=== PATIENT | male | born 1960 | race Two or more races ===

== ENCOUNTER 2021-05-24 11:33 | Outpatient (REF) | payer MEDICAID, SELFPAY ==
[2021-05-24 13:46] LABS: MANUAL DIFF FLAG NO
[2021-05-24 13:54] LABS: Basophils Absolute Auto 0.1 X10*3/uL (0.0-0.2); Basophils Percent Auto 0.5 % (0-2); Eosinophils Absolute Auto 0.1 X10*3/uL (0.0-0.4); Hematocrit 38.2 % (42.0-52.0); Hemoglobin 12.7 g/dl (14.0-18.0); Imm Gran Abs Auto 0.08 X10*3/uL (0.00-0.03); Imm Gran Pct Auto 0.7 % (0.0-0.4); Lymphocytes Absolute Auto 3.2 X10*3/uL (1.2-4.9); Lymphocytes Percent Auto 28.4 % (20-40); Mean Corpuscular HGB Conc 33.2 g/dl (31.0-36.0); Mean Corpuscular Hemoglobin 30.2 pg (27.0-33.0); Mean Corpuscular Volume 90.7 fL (80.0-98.0); Mean Platelet Volume 8.8 fL (9.4-12.4); Monocytes Absolute Auto 0.7 X10*3/uL (0.1-1.2); Monocytes Percent Auto 6.6 % (2-11); Neutrophils Percent Auto 62.8 % (45-73); Platelet Count 409 X10*3/uL (160-400); Red Blood Count 4.21 X10*6/uL (4.60-5.80); Red Cell Distribution Width 13.2 % (11.0-16.0); White Blood Count 11.1 X10*3/uL (4.8-10.8)
[2021-05-24 14:15] LABS: Alanine Aminotransferase 12 U/L (0-40); Albumin Level 4.3 g/dL (3.5-5.0); Alkaline Phosphatase 91 U/L (39-117); Anion Gap 15 (12-20); Aspartate Amino Transferase 23 U/L (5-37); Bilirubin Total 0.5 mg/dL (0.0-1.0); Blood Urea Nitrogen 11 mg/dL (9-16); Calcium 9.5 mg/dL (8.4-10.2); Carbon Dioxide 26 mmol/L (22-29); Chloride 101 mmol/L (96-108); Cholesterol 224 mg/dL; Estimated Glomerular Filt Rate > 60; Glucose Fasting 111 mg/dL (60-99); HDL Cholesterol 59 mg/dL; LDL Cholesterol Calculated 144 mg/dl; Potassium 4.3 mmol/L (3.3-5.1); Sodium 138 mmol/L (135-145); Total Protein 7.3 g/dL (6.5-8.0); Triglycerides 105 mg/dL
== END 2021-05-24 11:34 | disposition home or self-care (01) ==
LOC: HO.10HDL 11:33
PROVIDERS: Internal Medicine; Visit Provider Internal Medicine
DX: Z00.00 Encounter for general adult medical examination without abnormal findings (principal); F10.10 Alcohol abuse, uncomplicated; I10 Essential (primary) hypertension; I73.9 Peripheral vascular disease, unspecified; S43.422S Sprain of left rotator cuff capsule, sequela; Z72.0 Tobacco use
CPT/HCPCS: 36415; 80053; 80061; 85025

== ENCOUNTER → 2021-08-03 14:49 | Outpatient (BNVA) | payer MEDICAID, SELFPAY | PROVIDERS: PCP Internal Medicine; Visit Provider Surgery Vascular Surgery | DX: I73.9 Peripheral vascular disease, unspecified (principal) | CPT/HCPCS: 99202 ==

== ENCOUNTER 2021-09-23 11:46 | Outpatient (REF) | payer MEDICAID, SELFPAY ==
--- NOTE | ~2021-09-23 | US_ITS ---
EXAMINATION: COLOR-FLOW DUPLEX IMAGING OF THE BILATERAL LOWER EXTREMITY ARTERIAL SYSTEM. VELOCITY MEASUREMENTS THROUGHOUT THE FEMORAL ARTERIES WITH ANKLE-BRACHIAL PERIPHERAL ARTERIAL TESTING. CLINICAL INFORMATION: This is a 61-year-old male with claudication. Peripheral arterial disease. Hypertension, smoking, hyperlipidemia. RIGHT FEMORAL RUNOFF VELOCITIES: The right common femoral artery measures 39 cm/s and monophasic. The right profunda femoral artery is 21 cm/s and is monophasic. Right proximal superficial femoral artery measures 28 cm/s and monophasic. Mid superficial femoral artery is 44 cm/s and monophasic. Distal right superficial femoral artery measures 28 cm/s and is monophasic. Right popliteal velocity measures 23 cm/s and is monophasic. The posterior tibial artery velocity measures 17 cm/s and was monophasic. The right ankle-brachial index is 0.55. The waveforms are significantly depressed. LEFT FEMORAL RUNOFF VELOCITIES: The left common femoral artery measures 139 cm/s and triphasic. The left profunda femoral artery is 149 cm/s and is biphasic. Left proximal superficial femoral artery measures 44 cm/s and biphasic. Mid superficial femoral artery is 98 cm/s and triphasic. Distal left superficial femoral artery measures 101 cm/s and is triphasic. Left popliteal velocity measures 80 cm/s and is triphasic. The posterior tibial artery velocity measures 106 cm/s and was triphasic. The left ankle brachial index is 1.36. US/US arterial duplex LE BI IMPRESSION: 1. There are low velocities throughout the entire right lower extremity with monophasic waveforms and a severely diseased right ankle-brachial index. This suggests a hemodynamically significant stenosis is present. It is likely in the inflow in the right aortoiliac segment. 2. Normal left lower extremity peripheral arterial testing without hemodynamically significant stenosis.
== END 2021-09-23 11:47 | disposition home or self-care (01) ==
LOC: HO.US 11:46
PROVIDERS: PCP Internal Medicine; Visit Provider Surgery Vascular Surgery
DX: I73.9 Peripheral vascular disease, unspecified (principal)
CPT/HCPCS: 93925

== ENCOUNTER → 2021-10-07 10:49 | Outpatient (BNVA) | payer MEDICAID, SELFPAY | PROVIDERS: PCP Internal Medicine; Visit Provider Surgery Vascular Surgery | DX: I73.9 Peripheral vascular disease, unspecified (principal) | CPT/HCPCS: 99212 ==

== ENCOUNTER 2021-10-13 07:17 | Day surgery (SDC) | payer MEDICAID, SELFPAY ==
[2021-10-13] VITALS (11 sets, daily range): BP systolic 126–176; BP diastolic 69–96; PULSE 86–125; RESP 18–20; TEMP 36.1–37.7; O2SAT 97–99; BMI 27.0
[2021-10-13 08:24] LABS: MANUAL DIFF FLAG NO
[2021-10-13 08:29] LABS: Basophils Absolute Auto 0.1 X10*3/uL (0.0-0.2); Basophils Percent Auto 0.9 % (0-2); Eosinophils Absolute Auto 0.4 X10*3/uL (0.0-0.4); Eosinophils Percent Auto 4.5 % (0-4); Hematocrit 35.9 % (42.0-52.0); Hemoglobin 12.3 g/dl (14.0-18.0); Imm Gran Abs Auto 0.03 X10*3/uL (0.00-0.03); Imm Gran Pct Auto 0.4 % (0.0-0.4); Lymphocytes Absolute Auto 2.7 X10*3/uL (1.2-4.9); Mean Corpuscular HGB Conc 34.3 g/dl (31.0-36.0); Mean Corpuscular Hemoglobin 30.8 pg (27.0-33.0); Mean Corpuscular Volume 89.8 fL (80.0-98.0); Mean Platelet Volume 8.4 fL (9.4-12.4); Monocytes Absolute Auto 0.7 X10*3/uL (0.1-1.2); Neutrophils Absolute Auto 4.6 x10*3/uL (2.0-8.3); Neutrophils Percent Auto 54.2 % (45-73); Platelet Count 254 X10*3/uL (160-400); Red Cell Distribution Width 12.7 % (11.0-16.0); White Blood Count 8.5 X10*3/uL (4.8-10.8)
[2021-10-13 08:46] LABS: Blood Urea Nitrogen 8 mg/dL (9-16); Estimated Glomerular Filt Rate > 60
--- NOTE | 2021-10-13 11:27 | W.PM.OPN ---
Operative Note Operative Note Date of Service: 10/13/21 Narrative: Angiogram report from [facility] Preoperative diagnosis: Atherosclerosis of right lower extremity with activity limiting claudication Postoperative diagnosis: Same Procedure: 1. Ultrasound-guided left common femoral access 2. Aortogram with right lower extremity runoff Surgeon:Kiet Carter M.D., FACS, RPVI Biomass Production Manager:None Anesthesia: Local with moderate conscious sedation. Total intraservice moderate sedation time was 28 minutes. I monitored the patient's level of consciousness and physiologic status continuously throughout the procedure. Specimens:none Drains:none Estimated blood loss: Less than 10 ml Implant: None Indications: 61-year-old gentleman with history activity limiting claudication had noninvasive testing. He now presents for endovascular intervention The patient has signed the informed consent after reviewing risks, complications, benefits, and alternatives previously discussed with the patient. The patient was given the opportunity to ask any additional questions or voice any concerns. All questions were answered to the patient's satisfaction. Procedure in detail: Patient was brought to the angiography suite prior to which a time-out was called for patient identification and site verification. Bilateral groins were prepped and draped in the standard surgical fashion. Under ultrasound guidance left common femoral was punctured with micro puncture needle and wire. Subsequently a precision 5 Slovenian sheath was then placed. [employer] wire was advanced to the level of the aorta. 5 Slovenian Flush catheter was brought up and parked at the level of the renal arteries. Aortogram was then undertaken. Catheter was brought down to the level of the iliac bifurcation. Iliacs were subsequently imaged. Catheter was then brought in up and over to the right common femoral artery. Runoff study was then undertaken. No active intervention indicated. Catheter wire sheath was removed. 10 minutes of direct pressure was held. Patient tolerated the procedure well. Returned to recovery with stable vitals. Interpretation of films: 1. Ultrasound demonstrates appropriate femoral puncture. Image of which was saved. 2. Aortogram demonstrates appropriate caliber aorta. Minimal disease. Appropriate take-off of the renals. 3. Iliac images demonstrate no significant disease which was unexpected 4. Right Leg Common femoral artery: Near occlusive disease at the common femoral Profundus Femoris: Disease at origin Superficial femoral artery: Disease at origin and rest was patent Popliteal artery (p1,p2,p3): No significant disease Anterior tibial artery: No significant disease Peroneal artery: No significant disease Posterior tibial artery: No significant disease Dorsalis pedis/plantar arch: Complete Conclusion: 1. Successful diagnostic angiogram. The patient will require right femoral endarterectomy. 2. Anticoagulation status: No change This note is constructed using voice recognition software. While every effort has been made to ensure accuracy, optomechanical engineer errors may have been included. Thank you for allowing me to participate in the care of your patient. Yours sincerely, Kiet Carter MD, FACS, R.P.V.I.
== END 2021-10-13 14:28 | disposition home or self-care (01) ==
PROVIDERS: PCP Internal Medicine; Visit Provider Surgery Vascular Surgery
DX: I70.211 Atherosclerosis of native arteries of extremities with intermittent claudication, right leg (principal); I10 Essential (primary) hypertension; R25.2 Cramp and spasm; R26.2 Difficulty in walking, not elsewhere classified; Z79.899 Other long term (current) drug therapy; F10.10 Alcohol abuse, uncomplicated; F12.90 Cannabis use, unspecified, uncomplicated; F14.90 Cocaine use, unspecified, uncomplicated; F17.210 Nicotine dependence, cigarettes, uncomplicated; Z98.890 Other specified postprocedural states
CPT/HCPCS: 36246; 36415; 75630; 76937; 82565; 84520; 85025; 99152; 99153; C1769; C1887; J2250; J3010; Q9967

== ENCOUNTER → 2021-10-21 14:22 | Outpatient (BNVA) | payer MEDICAID, SELFPAY | PROVIDERS: PCP Internal Medicine; Visit Provider Surgery Vascular Surgery | DX: I73.9 Peripheral vascular disease, unspecified (principal) | CPT/HCPCS: 99212 ==

== ENCOUNTER → 2021-10-26 12:39 | Outpatient (BNVA) | payer MEDICAID, SELFPAY | PROVIDERS: PCP Internal Medicine; Visit Provider Internal Medicine Cardiovascular Disease | DX: Z01.810 Encounter for preprocedural cardiovascular examination (principal); I73.9 Peripheral vascular disease, unspecified | CPT/HCPCS: 93005; 99202 ==

== ENCOUNTER → 2021-11-04 07:53 | Outpatient (REF) | payer MEDICAID, SELFPAY ==
--- NOTE | ~2021-11-04 | NM_ITS ---
Lexiscan Myocardial perfusion study Indication: Preoperative cardiovascular evaluation Technique: The patient was brought in for a Lexiscan perfusion study on 11/04/2021 and was injected 0.4 mg of Lexiscan intravenously. Within a minute of this injection 30 mCi of sestamibi was given intravenously. Images were obtained using the SPECT gamma camera interlaced with the gating device. Images were obtained in supine position. Resting perfusion study was performed on 11/05/2021. Patient was administered 30 mCi of sestamibi intravenously at rest. Images were then obtained in supine position. Total DLP 84mGy-cm. Images were processed with the software and compared side to side in short axis, horizontal long axis and vertical long axis views. Findings: Raw acquisition was reviewed. The stress perfusion study showed diminished tracer uptake along the inferior wall from basal to mid portions. With CT attenuation correction, there is significant improvement suggestive of diaphragmatic attenuation artifact. The gated study shows normal LV systolic function with calculated LVEF of 68%. LV cavity is normal in size. The gated study shows normal wall thickening and contraction of segments. Resting study shows diminished tracer uptake along the inferior wall. With CT attenuation correction, there is improvement suggestive of diaphragmatic attenuation artifact. Gating at rest reveals normal wall motion with ejection fraction at 67%. The findings are consistent with no reversible defects. Fixed inferior defect suspected to be from diaphragmatic attenuation artifact. NM/NM saman perf SPECT rest & str Impression: 1. Myocardial perfusion imaging study shows likely normal myocardial perfusion. 2. Gated LVEF is 68% during stress and 67% during rest. 3. Transient ischemic dilatation not present. EKG component of the test reported separately.
--- NOTE | 2021-11-04 08:05 | CA_ITS ---
Acquisition Time: 2021-11-04 08:21:11 Total Exercise Time: 00:02:00 Test Indications: PREOP Medications: SEE CHART Protocol: LEXISCAN Max HR: 129 BPM 81% of Pred: 159 BPM Max BP: 148/082 mmHG Max Work Load: 1.6 METS Pharmacological stress test with Lexiscan injection, while walking slow on treadmill, without anginal symptoms, with isolated PVCs, with normotensive response to exercise, with nondiagnostic EKG for ischemia. In recovery he reported lightheadedness that was treated with caffinated soda and Aminophylline 75mg IVP to reverse Lexiscan with resolution of symptom. Nuclear images pending. Test reviewed with Dr Jackson. Referred By: Francisco Madrigal Overread By: MARTHA REYNOSO
--- NOTE | 2021-11-04 08:05 | CA_ITS ---
Transthoracic Echocardiogram Patient (Last, First, Middle): Preston Carbajal, Gender: Male Date of : 1960 Age: 61 Procedure Date: 11/04/2021 Procedure Type: Transthoracic Echocardiogram Location: OP Height: 180.34 cm Weight: 87.54 kg BSA: 2.08 m2 Heart Rate: 78 bpm BP: 150 / 78 mmHg Professor Of Physical Education: MOOSE Referring MD: Francisco Madrigal MD Symptoms: Z01.810 - Encounter for preprocedural cardiovascular exam... Study Quality: Adequate ECG Rhythm: Sinus Conclusions: - The left ventricular systolic function is normal. The calculated ejection fraction is 61% by biplane method. - No obvious valvular pathology seen on this study. Findings Left Ventricle Normal left ventricular cavity size. The left ventricular systolic function is normal. The calculated ejection fraction is 61% by biplane method. There is no evidence of regional wall motion abnormalities. Diastolic function is normal for age. LV peak GLS does not appear accurate. Right Ventricle Normal right ventricular cavity size and systolic function. Atria Both atria are normal in size. Aortic Valve There is a normal trileaflet aortic valve. There is no aortic valve stenosis. There is no aortic valve regurgitation. Mitral Valve The mitral valve appears normal. There is mild anterior mitral leaflet thickening. There is trace mitral valve regurgitation. There is no mitral valve stenosis. Pulmonic Valve The pulmonic valve is likely normal. Tricuspid Valve Normal tricuspid valve structure. There is no tricuspid valve regurgitation. Tricuspid regurgitation envelope is inadequate for calculation of right ventricular systolic pressure. Great Vessels The sinuses of valsalva, sino tubular ridge, and asc aorta are normal in size. Arch not well visualized. Venous The inferior vena cava is normal in size and collapses greater than 50% with inspiration. Pericardium/Pleural There is no evidence of pericardial effusion. Prior Study Comparison No prior study available for comparison. Recommendations, Care & Conclusions No obvious valvular pathology seen on this study. Measurements 2D Linear Measurements IVSd: 0.93 0.6-0.9/0.6-1.0 cm LVIDd: 5.78 3.9-5.3/4.2-5.9 cm LVIDs: 3.74 2.0-3.6 cm LVPWd: 0.78 0.7-1.1 cm LA Diam: 3.80 2.7-3.8/3.0-4.0 cm LV Mass: 237.05 67-162/88-224 g LVOT Diam: 2.30 3.0+(-)1.3 cm 2D Systolic Function EF 4C: 69.30 >55% EF 2C: 54.90 >55% EF BiP: 61.00 >55% Mitral Valve MV Pk E: 0.75 MV PK A: 0.87 MV Decel Time: 132.00 E/A: 0.90 E'Lateral: 9.25 E'Medial: 5.00 E/E' Med: 14.90 E/E' Lat: 8.10 PHT: 39.00 MVA PHT: 5.64 Decel Kendall: 5.66 Aortic Valve AoV Pk Naren: 1.44 AoV Mn Naren: 1.09 AoV VTI: 0.33 AoV Pk Grad: 8.00 Aov Mn Grad: 5.00 JOHN Cont.VTI: 2.91 LVOT LVOT Pk Naren: 1.01 LVOT Mn Naren: 0.71 LVOT VTI: 0.23 LVOT Pk Grad: 4.00 LVOT Mn Grad: 2.00 LVOT Diam: 2.30 LVOT Area: 4.15 Diastolic Function MV Pk E: 0.75 MV Pk A: 0.87 E/A: 0.90 E'Medial: 5.00 E/E' Med: 14.90 E' Laterial: 9.25 E/E' Lat: 8.10 Right Ventricle TAPSE (mm): 19.40 TVS' Naren: 15.80 Tricuspid Valve RA Press: 3.00 Great Vessels Aorta Sinus of Valsalva: 3.50 2.0-3.[address] Ridge: 3.00 1.7-3.4 cm Ao Asc: 3.60 2.1-3.4 cm Pulmonary Veins Pulm Vein S/D 1.90 Pulmonary Valve PV Pk Naren: 1.03 Peak PV Grad: 4.00 Updated in Other Vendor System with Status of Final Samuel Jackson MD electronically signed on 11/05/2021 12:33:06 PM with status of Final
== END ==
LOC: HO.CARD 07:53
PROVIDERS: PCP Internal Medicine; Visit Provider Internal Medicine Cardiovascular Disease
DX: Z01.810 Encounter for preprocedural cardiovascular examination (principal); R60.0 Localized edema
CPT/HCPCS: 78452; 93017; 93306; A9500; J0280; J2785

== ENCOUNTER 2021-11-08 06:12 | Inpatient (IN) | payer MEDICAID, SELFPAY ==
[2021-11-04 10:05] VITALS: BP 153/81; PULSE 88; RESP 20; O2SAT 98; BMI 26.7
--- NOTE | 2021-11-04 10:15 | P.CONAN_ITS ---
Documented by User: Petra Mar NP 11/05/21 12:53 HPI - Anesthesia Eval Consult details Narrative: 61yo M for Right Femoral Endarterectomy Cardiac risk strat pending Admits rare cocaine use. Educated re: periop risk r/t cocaine use. Pt states will refrain leading up to surgery. Tox screen DOS. ETOH = 6 beers daily. Educated on slowly decreasing leading up to DOS Recently quit smoking. PMFSH Active Problems Active Problems: All Active Problems (Updated 11/03/21 @ 10:09 by Kimi Young RN) PAD (peripheral artery disease) (Acute) Preoperative cardiovascular examination (Acute) Past Medical History Medical History Atherosclerosis of artery of extremity with intermittent claudication History of alcohol abuse History of cocaine abuse HTN (hypertension) Hypercholesterolemia Family History Family history of problems with anesthesia: No Surgical History Surgical History History of carpal tunnel surgery of right wrist Hx of arthroscopic knee surgery History of Problems with Anesthesia: No Social History Social History Are you a primary career services manager to a significant other at home: No Do you presently have visiting nurse or other home services: No Alcohol intake: current Alcohol intake frequency: 3 or more drinks per day Patient Tobacco Use Status: Former Tobacco user Quit Date: ~ 30 or more days ago Tobacco use type: Cigarette Cigarette Packs Per Day: 1 Cigarettes Per Day: 20.0 Years Smoked: 50 Smoked in Last 30 Days: No Patient Interested in Nicotine Replacement: No Patient Given Instructions on How to Stop Smoking: No Second Hand Smoke Exposure: No Use of substances other than those prescribed or required for medical reasons: Yes Substance Use Type: Crack/Cocaine, Marijuana and Other Substance Use Type Other:: infrequent Substance Use Frequency: Chronic Longstanding Have you been hit, kicked, punched, or otherwise hurt by someone within the past year? If so, by whom?: No Are you DNR?: No Advance Directives: No Advance Directives Information Provided: Yes (Info given to patient) Advance Directives on File: No Recently lost weight without trying: No Eating poorly because of decreased appetite: No Nutrition Risks: No Nutritional Risk Poor oral hygiene: Yes (Upper dentures, No teeth on bottom) Meds Allergies Allergy/AdvReac Type Severity Reaction Status Date / Time No Known Allergies Allergy Verified 11/04/21 10:04 [No Known Allergies*] Home Medications Medication Instructions Recorded Confirmed Last Taken Type rosuvastatin 20 mg tablet 20 mg PO DAILY 08/03/21 11/03/21 Unknown History amlodipine 10 mg tablet 1 tab PO DAILY 11/03/21 11/08/21 11/08/21 05:00 History naproxen 500 mg tablet 500 mg PO BID 11/04/21 11/04/21 11/06/21 History Exam Exam Date and Time: November 04, 2021 1015 Height,Weight and Vital Signs: Height 5 ft 11 in Weight 87.09 kg Last Vital Signs Pulse 88 11/04/21 10:05 Resp 20 11/04/21 10:05 BP 153/81 H 11/04/21 10:05 Pulse Ox 98 11/04/21 10:05 Narrative Narrative: EKG 10/2021 normal sinus rhythm normal EKG 81 beats per minute NM saman perf SPECT rest & str 10/2021 Impression: ? 1.? Myocardial perfusion imaging study shows likely normal myocardial perfusion. 2.? Gated LVEF is 68% during stress and 67% during rest. 3. Transient ischemic dilatation not present. ? EKG component of the test reported separately. (Nondiagnostic) Echo 10/2021 Conclusions: - The left ventricular systolic function is normal.? The ? calculated ejection fraction is 61% by biplane method. ? - No obvious valvular pathology seen on this study.? Findings Left Ventricle Normal left ventricular cavity size.? The left ventricular systolic function is normal.? The calculated ejection fraction is 61% by biplane method.? There is no evidence of regional wall motion abnormalities.? Diastolic function is normal for age.? LV peak GLS does not appear accurate. Airway Mallampati Class: I TM Dist: >3cm Neck ROM: Full Denture: Upper Heart: RRR Lungs: CTAB Assessment and Plan Assessment Anesthesia Assessment: Anesthesia Plan Discussed, Smoking Cess. Discussed and PAT Visit Final Anesthetic Review Family History of Problems with Anesthesia: No History of Problems with Anesthesia: No Documented by User: Maxine Agrawal MD 11/08/21 08:27 [facility] Active Problems Active Problems: All Active Problems (Updated 11/03/21 @ 10:09 by Kimi Young RN) PAD (peripheral artery disease) (Acute) Preoperative cardiovascular examination (Acute) 2 beers 2 days ago Denies cocaine use recently. States never used marijuana but positive urine tox screen for marijuana Past Medical History Medical History Atherosclerosis of artery of extremity with intermittent claudication History of alcohol abuse History of cocaine abuse HTN (hypertension) Hypercholesterolemia Surgical History Surgical History History of carpal tunnel surgery of right wrist Hx of arthroscopic knee surgery Social History Social History Are you a primary career services manager to a significant other at home: No Do you presently have visiting nurse or other home services: No Alcohol intake: current Alcohol intake frequency: 3 or more drinks per day Patient Tobacco Use Status: Former Tobacco user Quit Date: ~ 30 or more days ago Tobacco use type: Cigarette Cigarette Packs Per Day: 1 Cigarettes Per Day: 20.0 Years Smoked: 50 Smoked in Last 30 Days: No Patient Interested in Nicotine Replacement: No Patient Given Instructions on How to Stop Smoking: No Second Hand Smoke Exposure: No Use of substances other than those prescribed or required for medical reasons: Yes Substance Use Type: Crack/Cocaine, Marijuana and Other Substance Use Type Other:: infrequent Substance Use Frequency: Chronic Longstanding Have you been hit, kicked, punched, or otherwise hurt by someone within the past year? If so, by whom?: No Are you DNR?: No Advance Directives: No Advance Directives Information Provided: Yes (Info given to patient) Advance Directives on File: No Recently lost weight without trying: No Eating poorly because of decreased appetite: No Nutrition Risks: No Nutritional Risk Poor oral hygiene: Yes (Upper dentures, No teeth on bottom) Meds Allergies Allergy/AdvReac Type Severity Reaction Status Date / Time No Known Allergies Allergy Verified 11/04/21 10:04 [No Known Allergies*] Home Medications Medication Instructions Recorded Confirmed Last Taken Type rosuvastatin 20 mg tablet 20 mg PO DAILY 08/03/21 11/03/21 Unknown History amlodipine 10 mg tablet 1 tab PO DAILY 11/03/21 11/08/21 11/08/21 05:00 History naproxen 500 mg tablet 500 mg PO BID 11/04/21 11/04/21 11/06/21 History Exam Height,Weight and Vital Signs: Height 5 ft 11 in Weight 87.09 kg Last Vital Signs Pulse 88 11/04/21 10:05 Resp 20 11/04/21 10:05 BP 153/81 H 11/04/21 10:05 Pulse Ox 98 11/04/21 10:05 Vital Signs Temp Pulse Resp BP Pulse Ox 11/08/21 06:41 98.1 F 76 16 136/76 96 Pertinent Lab Results Pertinent Lab Results: Lab Results 11/04/21 11/04/21 11/04/21 Range/Units 10:54 10:57 10:57 WBC 8.0 (4.8-10.8) X10*3/uL RBC 4.26 L (4.60-5.80) X10*6/uL Hgb 13.2 L (14.0-18.0) g/dl Hct 38.6 L (42.0-52.0) % MCV 90.6 (80.0-98.0) fL MCH 31.0 (27.0-33.0) pg MCHC 34.2 (31.0-36.0) g/dl RDW 12.9 (11.0-16.0) % Plt Count 290 (160-400) X10*3/uL MPV 9.0 L (9.4-12.4) fL Absolute Nucleated RBC 0.000 (0.0-0.012) X10*3/uL Nucleated RBC % (auto) 0.0 (0.0-0.2) /100WBC PT 10.8 (9.9-13.0) SEC INR 1.0 (0.9-1.1) APTT 35.2 (24.1-38.0) SEC Sodium (135-145) mmol/L Potassium (3.3-5.1) mmol/L Chloride (96-108) mmol/L Carbon Dioxide (22-29) mmol/L Anion Gap (12-20) BUN (9-16) mg/dL Creatinine (0.5-1.4) mg/dL Estim Creat Clear Calc Estimated GFR Random Glucose (60-115) mg/dL Calcium (8.4-10.2) mg/dL Urine Fentanyl Screen (Not Detect) Ur Barbiturates Screen (Not Detect) Ur Phencyclidine Scrn (Not Detect) Ur Amphetamines Screen (Not Detect) U Benzodiazepines Scrn (Not Detect) Urine Cocaine Screen (Not Detect) U Marijuana (THC) Screen (Not Detect) COVID-19 (CECILY) (Negative) COVID-19 Clin Com Blood Type O Positive Antibody Screen NEGATIVE 11/04/21 11/08/21 11/08/21 Range/Units 10:57 06:15 06:15 WBC (4.8-10.8) X10*3/uL RBC (4.60-5.80) X10*6/uL Hgb (14.0-18.0) g/dl Hct (42.0-52.0) % MCV (80.0-98.0) fL MCH (27.0-33.0) pg MCHC (31.0-36.0) g/dl RDW (11.0-16.0) % Plt Count (160-400) X10*3/uL MPV (9.4-12.4) fL Absolute Nucleated RBC (0.0-0.012) X10*3/uL Nucleated RBC % (auto) (0.0-0.2) /100WBC PT (9.9-13.0) SEC INR (0.9-1.1) APTT (24.1-38.0) SEC Sodium 138 (135-145) mmol/L Potassium 4.2 (3.3-5.1) mmol/L Chloride 102 (96-108) mmol/L Carbon Dioxide 28 (22-29) mmol/L Anion Gap 12 (12-20) BUN 10 (9-16) mg/dL Creatinine 0.81 (0.5-1.4) mg/dL Estim Creat Clear Calc 102.0 Estimated GFR > 60 Random Glucose 117 H (60-115) mg/dL Calcium 9.4 (8.4-10.2) mg/dL Urine Fentanyl Screen Not Detected (Not Detect) Ur Barbiturates Screen Not Detected (Not Detect) Ur Phencyclidine Scrn Not Detected (Not Detect) Ur Amphetamines Screen Not Detected (Not Detect) U Benzodiazepines Scrn Not Detected (Not Detect) Urine Cocaine Screen Not Detected (Not Detect) U Marijuana (THC) Screen POSITIVE H (Not Detect) COVID-19 (CECILY) Negative (Negative) COVID-19 Clin Com See Note Blood Type Antibody Screen 11/08/21 11/08/21 11/08/21 Range/Units 06:46 06:46 06:46 WBC 7.8 (4.8-10.8) X10*3/uL RBC 4.00 L (4.60-5.80) X10*6/uL Hgb 12.6 L (14.0-18.0) g/dl Hct 36.8 L (42.0-52.0) % MCV 92.0 (80.0-98.0) fL MCH 31.5 (27.0-33.0) pg MCHC 34.2 (31.0-36.0) g/dl RDW 12.8 (11.0-16.0) % Plt Count 233 (160-400) X10*3/uL MPV 9.0 L (9.4-12.4) fL Absolute Nucleated RBC 0.000 (0.0-0.012) X10*3/uL Nucleated RBC % (auto) 0.0 (0.0-0.2) /100WBC PT 11.4 (9.9-13.0) SEC INR 1.0 (0.9-1.1) APTT 34.5 (24.1-38.0) SEC Sodium 139 (135-145) mmol/L Potassium 4.0 (3.3-5.1) mmol/L Chloride 106 (96-108) mmol/L Carbon Dioxide 25 (22-29) mmol/L Anion Gap 12 (12-20) BUN 14 (9-16) mg/dL Creatinine 0.77 (0.5-1.4) mg/dL Estim Creat Clear Calc 107.2 Estimated GFR > 60 Random Glucose 109 (60-115) mg/dL Calcium 9.5 (8.4-10.2) mg/dL Urine Fentanyl Screen (Not Detect) Ur Barbiturates Screen (Not Detect) Ur Phencyclidine Scrn (Not Detect) Ur Amphetamines Screen (Not Detect) U Benzodiazepines Scrn (Not Detect) Urine Cocaine Screen (Not Detect) U Marijuana (THC) Screen (Not Detect) COVID-19 (CECILY) (Negative) COVID-19 Clin Com Blood Type Antibody Screen Assessment and Plan Assessment Anesthesia Assessment: Chart Reviewed Final Anesthetic Review NPO: Yes ASA Class: III Final Preanesthetic Review: No Changes in Pt Med Stat, Meds/Allgs Chart Reviewed, Consent Obtained/Reviewed and Anes Risks/Benef Reviewed Patient Risk: Intermediate Procedure Risk: Intermediate Assessment/Block/Sedation in SS: Assess/Block/Sedation-SS Anesthetic Plan Anesthetic Plan: GA Disposition: Standard PACU and Inp. Admit - ICU
[2021-11-04 11:33] LABS: Prothrombin Time 10.8 SEC (9.9-13.0)
[2021-11-04 11:36] LABS: Partial Thromboplastin Time 35.2 SEC (24.1-38.0)
[2021-11-04 11:38] LABS: Hematocrit 38.6 % (42.0-52.0); Hemoglobin 13.2 g/dl (14.0-18.0); Mean Corpuscular HGB Conc 34.2 g/dl (31.0-36.0); Mean Corpuscular Volume 90.6 fL (80.0-98.0); Platelet Count 290 X10*3/uL (160-400); Red Blood Count 4.26 X10*6/uL (4.60-5.80); Red Cell Distribution Width 12.9 % (11.0-16.0)
[2021-11-04 12:14] LABS: Anion Gap 12 (12-20); Blood Urea Nitrogen 10 mg/dL (9-16); Calcium 9.4 mg/dL (8.4-10.2); Carbon Dioxide 28 mmol/L (22-29); Chloride 102 mmol/L (96-108); Estimated Glomerular Filt Rate > 60; Glucose Random 117 mg/dL (60-115); Potassium 4.2 mmol/L (3.3-5.1); Sodium 138 mmol/L (135-145)
[2021-11-08] VITALS (22 sets, daily range): BP systolic 107–159; BP diastolic 50–92; PULSE 76–100; RESP 11–20; TEMP 36.3–36.8; O2SAT 94–100
[2021-11-08 06:43] LABS: Fentanyl, urine Not Detected (Not Detect)
[2021-11-08 06:48] LABS: COVID-19 Test Negative (Negative); IDNOW Serial# 16C4AD1C
[2021-11-08 06:51] LABS: Amphetamine Screen Urine Not Detected (Not Detect); Barbiturates, Urine Not Detected (Not Detect); Benzodiazepines Screen Urine Not Detected (Not Detect); Cannabinoid Screen Urine POSITIVE (Not Detect); Cocaine Screen Urine Not Detected (Not Detect); Phencyclidine Screen Urine Not Detected (Not Detect)
[2021-11-08] MEDS: Lactated Ringers 1,000 ML 100 ML IVCONT (07:03)
[2021-11-08 07:08] LABS: Anion Gap 12 (12-20); Blood Urea Nitrogen 14 mg/dL (9-16); Calcium 9.5 mg/dL (8.4-10.2); Carbon Dioxide 25 mmol/L (22-29); Chloride 106 mmol/L (96-108); Creatinine Clr Calc Pharmacy 107.2; Estimated Glomerular Filt Rate > 60; Glucose Random 109 mg/dL (60-115); Sodium 139 mmol/L (135-145)
[2021-11-08 07:13] LABS: Hematocrit 36.8 % (42.0-52.0); Hemoglobin 12.6 g/dl (14.0-18.0); Mean Corpuscular HGB Conc 34.2 g/dl (31.0-36.0); Mean Corpuscular Hemoglobin 31.5 pg (27.0-33.0); Platelet Count 233 X10*3/uL (160-400); Red Cell Distribution Width 12.8 % (11.0-16.0); White Blood Count 7.8 X10*3/uL (4.8-10.8)
[2021-11-08 07:27] LABS: Prothrombin Time 11.4 SEC (9.9-13.0)
[2021-11-08 07:30] LABS: Partial Thromboplastin Time 34.5 SEC (24.1-38.0)
--- NOTE | 2021-11-08 07:48 | MHC.SHP ---
Pre-Procedural Eval Section A Date of Service: 11/08/21 The patient is an INPATIENT: No Changes since office visit: Yes Patient answered all questions The History & Physical has been completed within 30 days and I have reviewed it.: Yes Section B Chief Complaint: pad Allergies: Allergies Allergy/AdvReac Type Severity Reaction Status Date / Time No Known Allergies Allergy Verified 11/04/21 10:04 [No Known Allergies*] Plan I have reviewed the history and physical and performed a pertinent physical examination on my patient. No changes have occurred unless specified.
--- NOTE | 2021-11-08 07:54 | PC.NURSE ---
Addendum entered by Amy Mejias 11/08/21 07:55: Anesthesia Dr. Agrawal and OR nurse Jenna Read made aware. Original Note: Patient states he has had no alcohol beverages at all today, 11/08, or yesterday, 11/07.
--- NOTE | 2021-11-08 10:37 | W.PM.OPN ---
Operative Note Operative Note Date of Service: 11/08/21 Narrative: Operative note by [facility] Preoperative diagnosis: Atherosclerosis with severe activity limiting claudication Postoperative diagnosis: Same Procedure: Right femoral endarterectomy Surgeon:Kiet Carter M.D. Financial Legal Assistant: Dr. Barragan Anesthesia: General Specimens: 1 Drains: None Estimated blood loss: 350 mL Indications: 61-year-old gentleman with history significant for smoking presents with severe right lower extremity activity limiting claudication. He now presents for right femoral endarterectomy The patient has signed the informed consent after reviewing risks, complications, benefits, and alternatives previously discussed with the patient. The patient was given the opportunity to ask any additional questions or voice any concerns. All questions were answered to the patient's satisfaction. Procedure in detail: Patient was brought to the operating room prior to which a time-out was called for patient identification site verification. Right lower extremity was prepped and draped in standard surgical fashion. After time-out and general anesthesia was induced. We then created a longitudinal incision over the right common femoral artery. We were able to get through the fascia and identify the vessel. This was isolated with silastic loop. In addition would we went down to the SFA and profundus and these were individually isolated. We also isolated these with silastic loops. At this time 5000 units of systemic heparin was administered. After 5 minutes of circulation time we E then clamped off the common femoral profundus and SFA. Arteriotomy was created in the common femoral artery this was opened up proximally and distally with Landers scissors. We then undertook endarterectomy. This was done with a [place] elevator we had to do a remote endarterectomy of the SFA and profundus femorals. Once this was all accomplished we then checked flow in the common femoral and SFA. This demonstrated good back bleeding. We then circumferentially anastomosed a XenoSure or patch using a 5 0 Prolene suture. Prior to closure this was flushed clear. Once this was accomplished interrupted stay sutures with 600 and 7 0 Prolene were placed. Adequate hemostasis was achieved. In addition 1 posterior stitch had to be placed as well. Once this was all accomplished snow was placed. We observe the wound bed for 5 minutes. No additional bleeding was noted. At this time we then placed Tisseel sealant. We then reapproximated deep layer using 2 0 Polysorb superficial layer with 3-0 poly Sorb and finally skin with skin clips. Sterile dressing was applied. At the end the case sponge instrument counts were correct. Patient tolerated the procedure well. Returned to recovery with stable vitals. This note is constructed using voice recognition software. While every effort has been made to ensure accuracy, nutritionalist errors may have been included. Thank you for allowing me to participate in the care of your patient. Yours sincerely, Kiet Carter MD, FACS, R.P.V.I.
[2021-11-08] MEDS: 0.9 % Sodium Chloride 1,000 ML 100 ML IVCONT ×2 (10:49→20:02)
--- NOTE | 2021-11-08 13:10 | PM.CCHP ---
History of Present Illness Date of Service: 11/08/21 Chief Complaint: Status post elective right femoral endarterectomy 61-year-old gentleman with underlying history of hypertension peripheral vascular disease, and polysubstance abuse, now status post elective right femoral endarterectomy on 11/09/2019 to, being monitored in the intensive care unit in the immediate postop period. Review of Systems Constitutional: Constitutional: Denies daytime sleepiness, Denies excessive sweating, Denies fatigue, Denies fever(s), Denies lethargy, Denies malaise, Denies night sweats, Denies snoring and Denies weight loss Eyes: Eyes: Denies blurry vision and Denies itchy eyes ENT: Denies nasal congestion, Denies post nasal drip, Denies sinus pain, Denies sinus pressure and Denies other ( Thrush) Cardiovascular: Cardiovascular: Denies chest pain, Denies pedal edema, Denies dyspnea, Denies orthopnea and Denies paroxysmal nocturnal dyspnea Respiratory: Respiratory: Denies cough, Denies hemoptysis, Denies excessive phlegm production, Denies dyspnea, Denies snoring and Denies wheezing Gastrointestinal: Gastrointestinal: Denies abdominal pain and Denies heartburn Musculoskeletal: Musculoskeletal: Denies myalgias, Denies arthralgias and Denies joint swelling Integumentary/Breasts: Skin/Breast: Denies rash Neurologic: Denies memory loss and Denies seizure-like activity Psychiatric: Psychiatric: Denies abnormal sleep pattern, Denies anxiety and Denies memory loss Endocrine: Endocrine: Denies excessive sweating, Denies fatigue and Denies heat intolerance Hematologic/Lymphatic: Hematologic/Lymphatic: Denies easy bruising Allergic/Immunologic: Allergic/Immunologic: Denies itchy eyes, Denies seasonal rhinorrhea and Denies wheezing PMFSH Past Medical History Medical History (Updated 11/08/21 @ 13:17 by Geraldo Spencer MD) Atherosclerosis of artery of extremity with intermittent claudication History of alcohol abuse History of cocaine abuse HTN (hypertension) Hypercholesterolemia Surgical History Surgical History History of carpal tunnel surgery of right wrist Hx of arthroscopic knee surgery Social History Social History Are you a primary care transition coordinator to a significant other at home: No Do you presently have visiting nurse or other home services: No Alcohol intake: current Alcohol intake frequency: 3 or more drinks per day Patient Tobacco Use Status: Former Tobacco user Quit Date: ~ 30 or more days ago Tobacco use type: Cigarette Cigarette Packs Per Day: 1 Cigarettes Per Day: 20.0 Years Smoked: 50 Smoked in Last 30 Days: No Patient Interested in Nicotine Replacement: No Patient Given Instructions on How to Stop Smoking: No Second Hand Smoke Exposure: No Use of substances other than those prescribed or required for medical reasons: Yes Substance Use Type: Crack/Cocaine, Marijuana and Other Substance Use Type Other:: infrequent Substance Use Frequency: Chronic Longstanding Have you been hit, kicked, punched, or otherwise hurt by someone within the past year? If so, by whom?: No Are you DNR?: No Advance Directives: No Advance Directives Information Provided: Yes (Info given to patient) Advance Directives on File: No Recently lost weight without trying: No Eating poorly because of decreased appetite: No Nutrition Risks: No Nutritional Risk Poor oral hygiene: Yes (Upper dentures, No teeth on bottom) Meds Allergies Allergy/AdvReac Type Severity Reaction Status Date / Time No Known Allergies Allergy Verified 11/04/21 10:04 [No Known Allergies*] Active Medications: Current Medications Acetaminophen (Acetaminophen 325 Mg Tablet) 650 mg PO Q6H PRN PRN Reason: Pain, Mild (Pain Scale 1-3) Albuterol Sulfate (Albuterol Sulfate (0.083%) 2.5 Mg/3 Ml Vial.Neb) 2.5 mg INHALE ONCE PRN PRN Reason: Shortness of Breath/Wheezing Albuterol Sulfate (Albuterol Sulfate (0.083%) 2.5 Mg/3 Ml Vial.Neb) 2.5 mg INHALE ONCE PRN PRN Reason: Wheezing Fentanyl (Fentanyl Citrate/Pf 100 Mcg/2 Ml Vial) 25 mcg IVPUSH Q5M PRN; Protocol PRN Reason: Pain, Moderate (Pain Scale 4-6 Hydromorphone HCl (Hydromorphone Hcl 0.5 Mg/0.5 Ml Syringe) 0.25 mg IVPUSH Q5M PRN; Protocol PRN Reason: Pain, Severe (Pain Scale 7-10) Lactated Ringer's (Lr) 1,000 mls @ 100 mls/hr IVCONT .Q10H AZAM Last Infusion: 11/08/21 10:44 Dose: Infused Documented by: Promethazine HCl 6.25 mg/ (Sodium Chloride) 50.25 mls @ 201 mls/hr IV ONCE PRN PRN Reason: Nausea and Vomiting Sodium Chloride (Ns) 1,000 mls @ 100 mls/hr IVCONT .Q10H [facility] Last Admin: 11/08/21 10:49 Dose: 100 mls/hr Documented by: Cefazolin Sodium/Dextrose (Ancef) 2 gm in 50 mls @ 100 mls/hr IV POSTOP@1400 [facility] Stop: 11/08/21 14:29 Morphine Sulfate (Morphine Sulfate 2 Mg/Ml Cartridge) 2 mg IVPUSH Q4H PRN; Protocol PRN Reason: Pain, Severe (Pain Scale 7-10) Ondansetron HCl (Ondansetron Hcl 4 Mg/2 Ml Vial) 4 mg IVPUSH ONCE PRN PRN Reason: Nausea and Vomiting Oxycodone HCl (Oxycodone Hcl Immed Release 5 Mg Tablet) 5 mg PO ONCE PRN PRN Reason: Pain, Severe (Pain Scale 7-10) Oxycodone HCl (Oxycodone Hcl Immed Release 5 Mg Tablet) 5 mg PO Q4H PRN PRN Reason: Pain, Moderate (Pain Scale 4-6 Sodium Chloride (0.9 % Sodium Chloride Flush 3 Ml Syringe) 3 ml IVFLUSH QSHIFT [facility] Home Medications Medication Instructions Recorded Confirmed Last Taken Type rosuvastatin 20 mg tablet 20 mg PO DAILY 08/03/21 11/03/21 Unknown History amlodipine 10 mg tablet 1 tab PO DAILY 11/03/21 11/08/21 11/08/21 05:00 History naproxen 500 mg tablet 500 mg PO BID 11/04/21 11/04/21 11/06/21 History Physical Exam Vital Signs: Vital Signs: Last Vital Signs Temp 97.5 F 11/08/21 12:00 Pulse 96 11/08/21 12:00 Resp 17 11/08/21 12:00 BP 143/92 H 11/08/21 12:00 Pulse Ox 99 11/08/21 12:00 BMI result Body Mass Index 26.7 Const: General: no acute distress and alert Nutritional Appearance: not obese Orientation/consciousness: Other orientation findings ( oriented) HEENT: Head: Yes atraumatic Mouth: no other ( thrush) Throat: No postnasal drainage Eyes: General: appearance normal, both eyes and all related structures Sclerae: sclerae normal EOM: EOMs intact bilaterally Neck: Neck: Yes supple Lymphatic: no lymphadenopathy noted Resp: Effort & Inspection: normal respiratory effort and no use of accessory muscles Auscultation: clear to auscultation bilaterally Cardio: Rate: regular rate Rhythm: regular rhythm Heart sounds: no gallops, no murmurs and no rubs GI: Palpation (GI): Soft to palpation and Other GI palpation findings present ( nontender) Skin: General skin exam: other ( warm) Rashes: no rashes Extrem: General: No clubbing, No cyanosis, No edema and Yes other (Right femoral access site without hematoma) Results Labs CBC and Chem 7: 11/08/21 06:46 11/08/21 06:46 Labs: Laboratory Results - last 24 hr 11/08/21 11/08/21 11/08/21 06:15 06:15 06:46 MCV 92.0 MCH 31.5 MCHC 34.2 RDW 12.8 Plt Count 233 MPV 9.0 L Absolute Nucleated RBC 0.000 Nucleated RBC % (auto) 0.0 PT INR APTT Anion Gap Estim Creat Clear Calc Estimated GFR Random Glucose Calcium Urine Fentanyl Screen Not Detected Ur Barbiturates Screen Not Detected Ur Phencyclidine Scrn Not Detected Ur Amphetamines Screen Not Detected U Benzodiazepines Scrn Not Detected Urine Cocaine Screen Not Detected U Marijuana (THC) Screen POSITIVE H COVID-19 (CECILY) Negative COVID-19 Clin Com See Note 11/08/21 11/08/21 06:46 06:46 MCV MCH MCHC RDW Plt Count MPV Absolute Nucleated RBC Nucleated RBC % (auto) PT 11.4 INR 1.0 APTT 34.5 Anion Gap 12 Estim Creat Clear Calc 107.2 Estimated GFR > 60 Random Glucose 109 Calcium 9.5 Urine Fentanyl Screen Ur Barbiturates Screen Ur Phencyclidine Scrn Ur Amphetamines Screen U Benzodiazepines Scrn Urine Cocaine Screen U Marijuana (THC) Screen COVID-19 (CECILY) COVID-19 Clin Com Assessment and Plan (1) PAD (peripheral artery disease): Status: Acute (2) Preoperative cardiovascular examination: Status: Acute (3) Atherosclerosis of artery of extremity with intermittent claudication: Status: Acute Plan Assessment: 61-year-old gentleman postop day 1 status post elective right femoral endarterectomy being monitored in the intensive care unit. Plan: Neuro: No acute issues. Cardiac: Underlying peripheral arterial disease, now status post elective right femoral endarterectomy today. Vascular surgery service care appreciated. Maintain systolic blood pressure under 160. Pulmonary: No acute issues. Renal: No acute issues. Endo: No acute issues. GI: No acute issues. ID: No acute issues Heme/Onc: No acute issues. Psych: No acute issues. Miscellaneous: No acute issues. Prophylaxis: Per vascular surgery Diet: Regular
[2021-11-08 14:43] LABS: Opiate Screen Urine Not Detected (Not Detect)
[2021-11-08] MEDS: ceFAZolin Sodium/Dextrose,Iso 2 GM/50 ML PIGGYBACK IV (15:24)
[2021-11-08] MEDS: oxyCODONE HCl Immed Release 5 MG TABLET PO (17:21)
[2021-11-08] MEDS: Artificial Tears 15 ML DROPS 2 DROP EYE-BOTH (20:07)
--- NOTE | 2021-11-08 23:36 | PC.NURSE ---
Assumed care at 15:00. Patient is s/p right femoral endarterectomy. VS unremarkable. Afebrile. Alert and oriented, bilingual and fluent in Luxembourgish and [place]. DIOP, follows simple and complex commands, is neurologically intact. Breathing easily on room air. Distant heart sounds. Sinus rhythm on monitor without ectopy. Palpable +1 pulses on right DP and PT. Left foot with +2 palpable DP and PT. Discussed bed rest order with surgeon, patient is to complete 24 hours bedrest. Right groin dressing with some staining, spread from outline by about 1 cm in all directions, LICENSED MORTGAGE LOAN OFFICER aware, and HOB lowered, continuing to monitor. Good appetite and fluids. Pain to right groin site medicated with PO oxycodone with good effect.
[2021-11-09] VITALS (14 sets, daily range): BP systolic 111–149; BP diastolic 55–86; PULSE 64–95; RESP 10–77; TEMP 36.6–37.1; O2SAT 94–98; BMI 28.2
[2021-11-09] MEDS: oxyCODONE HCl Immed Release 5 MG TABLET PO ×3 (04:47→20:11)
[2021-11-09 05:29] LABS: MANUAL DIFF FLAG NO
[2021-11-09 05:33] LABS: Basophils Percent Auto 0.5 % (0-2); Eosinophils Absolute Auto 0.3 X10*3/uL (0.0-0.4); Eosinophils Percent Auto 3.1 % (0-4); Hematocrit 32.9 % (42.0-52.0); Hemoglobin 10.8 g/dl (14.0-18.0); Imm Gran Abs Auto 0.02 X10*3/uL (0.00-0.03); Imm Gran Pct Auto 0.2 % (0.0-0.4); Lymphocytes Percent Auto 23.6 % (20-40); Mean Corpuscular HGB Conc 32.8 g/dl (31.0-36.0); Mean Corpuscular Volume 94.5 fL (80.0-98.0); Mean Platelet Volume 9.2 fL (9.4-12.4); Monocytes Absolute Auto 0.6 X10*3/uL (0.1-1.2); Monocytes Percent Auto 7.3 % (2-11); Neutrophils Absolute Auto 5.6 x10*3/uL (2.0-8.3); Neutrophils Percent Auto 65.3 % (45-73); Platelet Count 207 X10*3/uL (160-400); Red Blood Count 3.48 X10*6/uL (4.60-5.80); White Blood Count 8.5 X10*3/uL (4.8-10.8)
[2021-11-09] MEDS: 0.9 % Sodium Chloride 1,000 ML 100 ML IVCONT (05:56)
[2021-11-09 06:02] LABS: Magnesium 1.9 mg/dL (1.6-2.6); Phosphorus 4.2 mg/dL (2.7-4.5)
[2021-11-09 06:08] LABS: Anion Gap 11 (12-20); Blood Urea Nitrogen 10 mg/dL (9-16); Calcium 8.8 mg/dL (8.4-10.2); Carbon Dioxide 26 mmol/L (22-29); Chloride 108 mmol/L (96-108); Creatinine Clr Calc Pharmacy 111.6; Estimated Glomerular Filt Rate > 60; Glucose Random 109 mg/dL (60-115); Potassium 4.3 mmol/L (3.3-5.1); Sodium 141 mmol/L (135-145)
--- NOTE | 2021-11-09 08:24 | HO.POSTANES ---
Post Anesthesia Evaluation Post Anesthesia Evaluation Vital Signs: Vital Signs Temp Pulse Resp BP Pulse Ox 11/09/21 08:00 98.3 F 81 11 L 127/63 96 11/09/21 07:00 64 11 L 119/67 95 11/09/21 06:00 71 13 149/75 H 94 11/09/21 05:00 82 13 111/55 L 94 11/09/21 04:00 97.8 F 73 11 L 124/65 94 11/09/21 03:00 73 11 L 124/67 95 11/09/21 02:00 76 12 133/84 94 11/09/21 01:00 73 10 L 131/65 96 11/09/21 00:00 97.8 F 77 77 H 124/61 94 11/08/21 23:00 81 12 119/60 11/08/21 22:00 83 15 124/72 94 11/08/21 21:00 95 20 141/71 H 96 Anesthesia: General Mental Status: Awake Pain Control: Satisfactory Nausea/Vomiting: None Hydration: Adequate Anesthesia-Related Issues: No Anes. Related Issues
--- NOTE | 2021-11-09 09:21 | P.PNVS_ITS ---
Subjective Subjective Date of Service: 11/09/21 Patient reports: no new complaints and feels better Interval history: Patient is postop day 1 status post femoral endarterectomy. Appears to be doing relatively well. He does have some mild drainage in the dressing. His bigger complaint is back discomfort. He is tolerating a regular diet this morning. He is anxious to be out of bed. No events overnight. Physical Exam Vital Signs: Vital Signs: Last Vital Signs Temp 98.3 F 11/09/21 08:00 Pulse 81 11/09/21 08:00 Resp 11 L 11/09/21 08:00 BP 127/63 11/09/21 08:00 Pulse Ox 96 11/09/21 08:28 BMI result Body Mass Index 28.2 Const: General: cooperative, healthy appearing and no acute distress Orientation/consciousness: oriented to person, oriented to place and oriented to time HEENT: Head: Yes normal to inspection Neck: Carotids: no bruits Chest: Chest palpation & inspection: normal inspection of the chest Resp: Effort & Inspection: normal respiratory effort and able to speak in complete sentences Auscultation: clear to auscultation bilaterally Cardio: Rate: regular rate Heart sounds: S1 normal heart sound present and S2 normal heart sound present GI: Inspection: Yes normal to inspection Skin: Other: Right groin dressing mild drainage General skin exam: no rashes or lesions noted Wounds: no wounds Neuro: General: oriented to person, oriented to place, oriented to time and CN's II-XI intact bilaterally Extrem: General: Yes normal to inspection, Yes full ROM and Yes no clubbing, cyanosis or edema Psych: Appearance: grossly normal and well kempt Speech and movement: Normal speech and movement present Affect: normal affect Progress Note: A&P Assessment and plan (1) PAD (peripheral artery disease): Status: Acute Assessment and Plan: Patient is postop day 1 status post femoral endarterectomy. No events overnight. Appears to be doing relatively well. He can be out of bed to chair today. Will start him on subcu heparin. Stable for transfer up to [facility]. Thank you for allowing us to assist in his care. Time Spent With Patient Time: Total time spent is greater than 50% in coordination of care (as documented) at patient's floor/unit and/or counseling patient: Procedures Date of Service Date of Service: 11/09/21 Quality Stroke Does the patient have a stroke diagnosis?: No VTE Prior VTE?: No VTE Risk Level:: Surgical - moderate VTE Device Contraindication: N/A - Device Ordered VTE Drug Contraindication: N/A - Med Ordered
--- NOTE | 2021-11-09 10:04 | PC.NURSE ---
mason removed 1000, pt up to bedside commode and had BM, urinated in urinal a little. Pt in chair, report given for pt to be transferred to C
[2021-11-09] MEDS: Heparin Sodium,Porcine 5,000 UNIT/ML VIAL 5000 UNIT SUBCUT ×2 (10:09→16:33)
--- NOTE | 2021-11-09 12:18 | MHC.CM.PN ---
Met with pt to discuss d/c planning: pt states he lives alone, works for a [employer] company and has no services. He states he was able to return to home without services when he had his first surgery and does not anticipate needing services during this recovery. Pt inquired about financial assistance while he is out of work: referred him to his HR department for assistance with FMLA. Pt has a working cell and will call his friend or a family member to transport him home. Vax x3 HCP declined.
[2021-11-09] MEDS: 0.9 % Sodium Chloride Flush 3 ML SYRINGE IVFLUSH ×2 (16:35→20:11)
[2021-11-10] VITALS: BP 172/80; PULSE 93; RESP 18; TEMP 37.1; O2SAT 97
[2021-11-10] MEDS: oxyCODONE HCl Immed Release 5 MG TABLET PO ×2 (00:47→08:01)
[2021-11-10] MEDS: Heparin Sodium,Porcine 5,000 UNIT/ML VIAL 5000 UNIT SUBCUT ×2 (00:47→08:00)
[2021-11-10] MEDS: amLODIPine Besylate 10 MG TABLET PO ×2 (01:31→08:00)
[2021-11-10 03:41] VITALS: BP 146/74; PULSE 93; RESP 18; TEMP 37.6; O2SAT 98
[2021-11-10 05:10] VITALS: BMI 27.7
[2021-11-10 08:00] VITALS: BP 126/72; PULSE 93; RESP 16; TEMP 36; O2SAT 100
[2021-11-10] MEDS: 0.9 % Sodium Chloride Flush 3 ML SYRINGE IVFLUSH (08:01)
--- NOTE | 2021-11-10 09:50 | PM.DS ---
DS: Providers Provider Date of Service: 11/10/21 Date of admission: 11/08/21 06:12 Primary care physician: Beatriz Thompson MD DS: Diagnosis Discharge Diagnosis (1) PAD (peripheral artery disease): Status: Acute DS: Summary Hospital Course Hospital Course: Patient underwent right femoral endarterectomy on 11/08/2021. Operation went without incident. Postoperatively he was observed in the ICU overnight he did have decreased urine output which did improve with fluid boluses. Postop day 1 he was transferred up to the intermediate care unit he was up to a chair. Pain was reasonably well controlled. Postop day 2 he was ambulating well. He did have some mild musculoskeletal discomfort which was expected for postoperatively he did have a palpable DP pulse on the right lower extremity. Was tolerating a regular diet. He was stable for discharge. Time Spent with Patient Time attestation: Total time spent providing and/or coordinating discharge services: Discharge coordination time: Greater than 30 minutes Quality: Safe Use of Opioids Does Pt have an Active Cancer Diagnosis on the Problem List?: No Quality: Stroke Does the patient have a stroke diagnosis?: No Physical Exam Vital Signs: Vital Signs: Last Vital Signs Temp 96.8 F 11/10/21 08:00 Pulse 93 11/10/21 08:00 Resp 16 11/10/21 08:00 BP 126/72 11/10/21 08:00 Pulse Ox 100 11/10/21 08:00 BMI result Body Mass Index 27.7 DS: Data Data Completed and Pending Completed studies during hospitalization [Text1]: Pending at discharge 11/08/21 08:46 Surgical [PTH] Routine Discharge Plan Discharge Patient Disposition: Home, Self-Care Discharge Diagnosis: Peripheral vascular disease Referrals: Beatriz Thompson MD [Primary Care Provider] - 1 Week Discharge Medications: New oxycodone-acetaminophen [Percocet] 5-325 mg tablet 1 tab PO Q8H PRN (Reason: pain) Qty: 20 0RF Continued amlodipine 10 mg tablet 1 tab PO DAILY 0RF naproxen 500 mg Tablet 500 mg PO BID 0RF rosuvastatin 20 mg tablet 20 mg PO DAILY 0RF Discharge Orders: Discharge Order (Routine); Ordered 11/10/21 Ordered By: Kiet Carter Activity on Discharge: As tolerated Stand Alone Forms: Patient Portal Discharge page Activity Restrictions/Additional Instructions: Skin tejal were used, you may shower tomorrow. Keep incision open to air after shower Take it easy today and you may ambulate around the house. Within next 2-3 days you can resume normal activity You may climb a flight of stairs as tolerated Do not lift anything heavier than a gallon of milk for [address] Carter in follow-up in approximately 2 weeks time. You should already have an appointment if not please call my office at [phone] Please see above for any change in medications If you notice excessive bleeding from the groin please immediately call my office or return to the emergency room. Care Plan Goals: Improve ambulation Health Concerns: Peripheral vascular disease Plan of Treatment: Surveillance arterial follow-up Assessment: Peripheral vascular disease
--- NOTE | 2021-11-10 09:54 | MHC.CM.PN ---
Patient has been medically cleared for dc to home today, self care.
== END 2021-11-10 13:16 | disposition home or self-care (01) | DRG 181 ==
LOC: HO.SSSA 06:15 → HO.ICU 11:06 → HO.IMC 11-09 10:26
PROVIDERS: Nurse Practitioner; Admitting Provider Surgery Vascular Surgery; PCP Internal Medicine; Visit Provider Internal Medicine Pulmonary Disease
PROC: 04CK0ZZ Extirpation of Matter from Right Femoral Artery, Open Approach (ICD-10-PCS; principal; 2021-11-08 07:30)
DX: I70.211 Atherosclerosis of native arteries of extremities with intermittent claudication, right leg (principal); E78.00 Pure hypercholesterolemia, unspecified; F10.10 Alcohol abuse, uncomplicated; Z20.822 Contact with and (suspected) exposure to COVID-19; Z87.891 Personal history of nicotine dependence; Z79.899 Other long term (current) drug therapy
CPT/HCPCS: 36415; 80048; 80307; 83735; 84100; 85025; 85027; 85610; 85730; 86850; 86900; 86901; 87635; 88304; 88311; C1757; C1768; J0690; J1170; J2250; J2370; J2405; J2795; J3010; Q9967

== ENCOUNTER → 2021-11-23 13:41 | Outpatient (BNVA) | payer MEDICAID, SELFPAY | PROVIDERS: PCP Internal Medicine; Visit Provider Surgery Vascular Surgery | DX: I73.9 Peripheral vascular disease, unspecified (principal) | CPT/HCPCS: 99212 ==

== ENCOUNTER → 2021-12-02 12:41 | Outpatient (BNVA) | payer MEDICAID, SELFPAY | PROVIDERS: PCP Internal Medicine; Visit Provider Surgery Vascular Surgery | DX: Z48.812 Encounter for surgical aftercare following surgery on the circulatory system (principal) | CPT/HCPCS: 99212 ==

== ENCOUNTER → 2021-12-09 09:42 | Outpatient (BNVA) | payer MEDICAID, SELFPAY | PROVIDERS: PCP Internal Medicine; Visit Provider Surgery Vascular Surgery | DX: I73.9 Peripheral vascular disease, unspecified (principal); Z98.890 Other specified postprocedural states | CPT/HCPCS: 99212 ==

== ENCOUNTER 2022-03-10 12:38 | Outpatient (REF) | payer MEDICAID, SELFPAY ==
--- NOTE | ~2022-03-10 | US_ITS ---
EXAMINATION: ANKLE-BRACHIAL INDICES SINGLE LEVEL PULSE VOLUME RECORDING ARTERIAL DUPLEX BILATERAL LEGS CLINICAL INFORMATION: Peripheral vascular disease. 3 month follow-up after endarterectomy 11/08/2021. COMPARISON: 09/23/2021 TECHNIQUE: Ankle-brachial indices and PVR at the ankle were obtained. Duplex Doppler of the bilateral lower extremity arterial systems was performed. FINDINGS: RIGHT: Ankle-brachial index: 1.03 (previously 0.55) PVR: Normal (previously abnormal) Common femoral: PSV 289 cm/s. Biphasic waveform. Improved. Deep femoral: PSV 104 cm/s. Biphasic waveform. Improved. Proximal superficial femoral: PSV 109 cm/s. Triphasic waveform. Improved. Mid superficial femoral: PSV 122 cm/s. Triphasic waveform. Improved. Distal superficial femoral: PSV 179 cm/s. Triphasic waveform. Improved. Popliteal: PSV 129 cm/s. Triphasic waveform. Improved. Posterior tibial: PSV 99 cm/s. Triphasic waveform. Improved. Peroneal: PSV 54 cm/s. Biphasic waveform. Improved. LEFT: Ankle-brachial index: 1.15 PVR: Normal Common femoral: PSV 130 cm/s. Triphasic waveform. Deep femoral: PSV 140 cm/s. Biphasic waveform. Proximal superficial femoral: PSV 112 cm/s. Triphasic waveform. Mid superficial femoral: PSV 129 cm/s. Triphasic waveform. Distal superficial femoral: PSV 95 cm/s. Triphasic waveform. Popliteal: PSV 136 cm/s. Triphasic waveform. Posterior tibial: PSV 109 cm/s. Triphasic waveform. Peroneal: PSV 44 cm/s. Triphasic waveform. US/US arterial duplex LE BI IMPRESSION: Significant improvement in right lower extremity velocities, waveform, and ITZ after endarterectomy. The ITZ is now normal and the PVR waveform is normal.
--- NOTE | ~2022-03-10 | US_ITS ---
EXAMINATION: ANKLE-BRACHIAL INDICES SINGLE LEVEL PULSE VOLUME RECORDING ARTERIAL DUPLEX BILATERAL LEGS CLINICAL INFORMATION: Peripheral vascular disease. 3 month follow-up after endarterectomy 11/08/2021. COMPARISON: 09/23/2021 TECHNIQUE: Ankle-brachial indices and PVR at the ankle were obtained. Duplex Doppler of the bilateral lower extremity arterial systems was performed. FINDINGS: RIGHT: Ankle-brachial index: 1.03 (previously 0.55) PVR: Normal (previously abnormal) Common femoral: PSV 289 cm/s. Biphasic waveform. Improved. Deep femoral: PSV 104 cm/s. Biphasic waveform. Improved. Proximal superficial femoral: PSV 109 cm/s. Triphasic waveform. Improved. Mid superficial femoral: PSV 122 cm/s. Triphasic waveform. Improved. Distal superficial femoral: PSV 179 cm/s. Triphasic waveform. Improved. Popliteal: PSV 129 cm/s. Triphasic waveform. Improved. Posterior tibial: PSV 99 cm/s. Triphasic waveform. Improved. Peroneal: PSV 54 cm/s. Biphasic waveform. Improved. LEFT: Ankle-brachial index: 1.15 PVR: Normal Common femoral: PSV 130 cm/s. Triphasic waveform. Deep femoral: PSV 140 cm/s. Biphasic waveform. Proximal superficial femoral: PSV 112 cm/s. Triphasic waveform. Mid superficial femoral: PSV 129 cm/s. Triphasic waveform. Distal superficial femoral: PSV 95 cm/s. Triphasic waveform. Popliteal: PSV 136 cm/s. Triphasic waveform. Posterior tibial: PSV 109 cm/s. Triphasic waveform. Peroneal: PSV 44 cm/s. Triphasic waveform. US/US ITZ complete IMPRESSION: Significant improvement in right lower extremity velocities, waveform, and ITZ after endarterectomy. The ITZ is now normal and the PVR waveform is normal.
== END 2022-03-10 12:39 | disposition home or self-care (01) ==
LOC: HO.US 12:38
PROVIDERS: Visit Provider Surgery Vascular Surgery
DX: I73.9 Peripheral vascular disease, unspecified (principal)
CPT/HCPCS: 93923; 93925

== ENCOUNTER → 2022-03-15 13:37 | Outpatient (BNVA) | payer MEDICAID, SELFPAY | PROVIDERS: PCP Internal Medicine; Visit Provider Surgery Vascular Surgery | DX: I73.9 Peripheral vascular disease, unspecified (principal) | CPT/HCPCS: 99212 ==

== ENCOUNTER 2022-06-29 09:44 | Outpatient (REF) | payer MEDICAID, SELFPAY ==
[2022-06-29 10:33] LABS: MANUAL DIFF FLAG NO
[2022-06-29 10:47] LABS: Basophils Absolute Auto 0.1 X10*3/uL (0.0-0.2); Basophils Percent Auto 0.7 % (0-2); Eosinophils Absolute Auto 0.1 X10*3/uL (0.0-0.4); Eosinophils Percent Auto 1.3 % (0-4); Hematocrit 43.3 % (42.0-52.0); Hemoglobin 14.6 g/dl (14.0-18.0); Imm Gran Abs Auto 0.05 X10*3/uL (0.00-0.03); Imm Gran Pct Auto 0.5 % (0.0-0.4); Lymphocytes Absolute Auto 2.9 X10*3/uL (1.2-4.9); Lymphocytes Percent Auto 29.9 % (20-40); Mean Corpuscular HGB Conc 33.7 g/dl (31.0-36.0); Mean Corpuscular Hemoglobin 30.7 pg (27.0-33.0); Mean Corpuscular Volume 91.2 fL (80.0-98.0); Mean Platelet Volume 8.8 fL (9.4-12.4); Monocytes Absolute Auto 0.8 X10*3/uL (0.1-1.2); Monocytes Percent Auto 7.7 % (2-11); Neutrophils Absolute Auto 5.8 x10*3/uL (2.0-8.3); Neutrophils Percent Auto 59.9 % (45-73); Platelet Count 294 X10*3/uL (160-400); Red Blood Count 4.75 X10*6/uL (4.60-5.80); Red Cell Distribution Width 12.3 % (11.0-16.0); White Blood Count 9.7 X10*3/uL (4.8-10.8)
[2022-06-29 11:29] LABS: Alanine Aminotransferase 19 U/L (0-40); Albumin Level 4.5 g/dL (3.5-5.0); Alkaline Phosphatase 93 U/L (39-117); Anion Gap 12 (12-20); Aspartate Amino Transferase 31 U/L (5-37); Bilirubin Total 0.7 mg/dL (0.0-1.0); Blood Urea Nitrogen 10 mg/dL (9-16); Calcium 9.4 mg/dL (8.4-10.2); Carbon Dioxide 30 mmol/L (22-29); Chloride 103 mmol/L (96-108); Cholesterol 216 mg/dL; Estimated Glomerular Filt Rate > 60; Glucose Fasting 128 mg/dL (60-99); HDL Cholesterol 65 mg/dL; LDL Cholesterol Calculated 129 mg/dl; Potassium 4.3 mmol/L (3.3-5.1); Sodium 141 mmol/L (135-145); Total Protein 7.5 g/dL (6.5-8.0); Triglycerides 114 mg/dL
== END 2022-06-29 09:45 | disposition home or self-care (01) ==
LOC: HO.10HDL 09:44
PROVIDERS: Visit Provider Internal Medicine
DX: Z12.5 Encounter for screening for malignant neoplasm of prostate (principal); E78.00 Pure hypercholesterolemia, unspecified; I10 Essential (primary) hypertension; L03.314 Cellulitis of groin; Z72.0 Tobacco use
CPT/HCPCS: 36415; 80053; 80061; 84153; 85025

== ENCOUNTER 2022-09-07 13:23 | Outpatient (REF) | payer MEDICAID, SELFPAY ==
--- NOTE | ~2022-09-07 | US_ITS ---
EXAMINATION: Noninvasive assessment of the bilateral lower extremities with ARTERIAL DUPLEX and ANKLE BRACHIAL INDICES (ABIs). CLINICAL INFORMATION: Peripheral vascular disease with history of prior right endarterectomy TECHNIQUE: Duplex Doppler techniques with waveform analysis and measurement of velocities in the bilateral common femoral, profunda femoris, superficial femoral, popliteal and tibial arteries were performed. Additionally, ankle pulse volume recordings, ankle pressure measurements and ankle brachial indices were obtained of the lower extremity arterial system bilaterally. The study was performed only at rest. COMPARISON: 03/10/2022 FINDINGS: DIRECT DUPLEX DOPPLER FINDINGS: RIGHT LEG: Common femoral artery: 269 cm/s, phasicity: Biphasic. Postsurgical changes consistent with prior endarterectomy without significant plaque Profunda femoris artery: 135 cm/s, phasicity: Biphasic Superficial femoral artery (proximal): 138 cm/s, phasicity: Triphasic Superficial femoral artery (mid): 99.8 cm/s, phasicity: Triphasic Superficial femoral artery (distal): 116 cm/s, phasicity: Triphasic Popliteal artery: 106 cm/s, phasicity: Triphasic Posterior tibial artery: 79.8 cm/s, phasicity: Triphasic Peroneal artery: 65.2 cm/s, phasicity: Biphasic LEFT LEG: Common femoral artery: 160 cm/s, phasicity: Triphasic. Stable mild calcified plaque Profunda femoris artery: 142 cm/s, phasicity: Biphasic Superficial femoral artery (proximal): 165 cm/s, phasicity: Triphasic Superficial femoral artery (mid): 99 cm/s, phasicity: Triphasic Superficial femoral artery (distal): 74.5 cm/s, phasicity: Triphasic Popliteal artery: 150 cm/s, phasicity: Triphasic. There is moderate calcified plaque Posterior tibial artery: 109 cm/s, phasicity: Triphasic Peroneal artery: 55.0 cm/s, phasicity: Biphasic ANKLE-BRACHIAL INDEX: Right: 0.95, previously 1.03? Left: 1.1, previously 1.15 ANKLE PRESSURES: Right: PT 142, DP 121 Left: PT?165, DP?143 ANKLE PVR WAVEFORMS: Right: Abnormal, minimally dampened Left: Normal US/US arterial duplex LE BI IMPRESSION: Right leg: Normal ankle brachial index. Patent arterial duplex ultrasound without significant stenosis or occlusion. Stable postsurgical changes consistent with right common femoral artery endarterectomy Left leg: Normal ankle brachial index. Patent arterial duplex ultrasound without significant arterial stenosis or occlusion. Scattered atherosclerotic plaque ITZ Reference: - >1.4 = calcified vessels - 0.9 - 1.4 = normal - no significant arterial disease - 0.7 - 0.89 = mild peripheral arterial disease - 0.51 - 0.69 = moderate peripheral arterial disease - ? 0.50 = severe peripheral arterial disease - < .30 = critical arterial disease
== END 2022-09-07 13:24 | disposition home or self-care (01) ==
LOC: HO.US 13:23
PROVIDERS: PCP Internal Medicine; Visit Provider Surgery Vascular Surgery
DX: I70.213 Atherosclerosis of native arteries of extremities with intermittent claudication, bilateral legs (principal)
CPT/HCPCS: 93923; 93925

== ENCOUNTER → 2022-09-13 13:57 | Outpatient (BNVA) | payer MEDICAID, SELFPAY | PROVIDERS: PCP Internal Medicine; Visit Provider Surgery Vascular Surgery | DX: I73.9 Peripheral vascular disease, unspecified (principal) | CPT/HCPCS: 99212 ==

== ENCOUNTER 2022-10-13 10:13 | Outpatient (REF) | payer MEDICAID, SELFPAY ==
[2022-10-13 13:43] LABS: Estimated Average Glucose 120 mg/dL; Hemoglobin A1c % 5.8 %
[2022-10-13 13:50] LABS: Alanine Aminotransferase 23 U/L (0-40); Albumin Level 4.2 g/dL (3.5-5.0); Alkaline Phosphatase 87 U/L (39-117); Anion Gap 15 (12-20); Aspartate Amino Transferase 33 U/L (5-37); Bilirubin Total 0.5 mg/dL (0.0-1.0); Blood Urea Nitrogen 8 mg/dL (9-16); Calcium 8.8 mg/dL (8.4-10.2); Carbon Dioxide 26 mmol/L (22-29); Chloride 107 mmol/L (96-108); Cholesterol 185 mg/dL; Estimated Glomerular Filt Rate > 60; Glucose Random 93 mg/dL (60-115); HDL Cholesterol 63 mg/dL; LDL Cholesterol Calculated 106 mg/dl; Potassium 4.2 mmol/L (3.3-5.1); Sodium 144 mmol/L (135-145); Triglycerides 81 mg/dL
== END 2022-10-13 10:14 | disposition home or self-care (01) ==
LOC: HO.10HDL 10:13
PROVIDERS: Visit Provider Internal Medicine
DX: Z00.00 Encounter for general adult medical examination without abnormal findings (principal); E78.00 Pure hypercholesterolemia, unspecified; I10 Essential (primary) hypertension; Z72.0 Tobacco use
CPT/HCPCS: 36415; 80053; 80061; 83036

== ENCOUNTER 2023-02-28 14:21 | Outpatient (REF) | payer MEDICAID, SELFPAY ==
--- NOTE | ~2023-02-28 | US_ITS ---
EXAMINATION: Noninvasive assessment of the bilateral lower extremities with ARTERIAL DUPLEX and ANKLE BRACHIAL INDICES (ABIs). CLINICAL INFORMATION: Peripheral vascular disease. History of right common femoral artery endarterectomy TECHNIQUE: Duplex Doppler techniques with waveform analysis and measurement of velocities in the bilateral common femoral, profunda femoris, superficial femoral, popliteal and tibial arteries were performed. Additionally, ankle pulse volume recordings, ankle pressure measurements and ankle brachial indices were obtained of the lower extremity arterial system bilaterally. The study was performed only at rest. COMPARISON: 09/07/2022 FINDINGS: DIRECT DUPLEX DOPPLER FINDINGS: RIGHT LEG: Common femoral artery: 218 cm/s,, previously 269 cm/s phasicity: Biphasic. Postsurgical changes seen in the common femoral artery consistent with prior endarterectomy without significant recurrent plaque. Profunda femoris artery: 129 cm/s, phasicity: Triphasic Superficial femoral artery (proximal): 123 cm/s, phasicity: Triphasic Superficial femoral artery (mid): 104 cm/s, phasicity: Triphasic Superficial femoral artery (distal): 107 cm/s, phasicity: Triphasic Popliteal artery: 117 cm/s, phasicity: Triphasic Posterior tibial artery: 92 cm/s, phasicity: Triphasic Peroneal artery: 49 cm/s, phasicity: Triphasic Anterior tibial artery: 44 cm/s, phasicity: Triphasic Dorsalis pedis artery: 86 cm/s, phasicity:Triphasic LEFT LEG: Common femoral artery: 125 cm/s, phasicity: Triphasic. Mild calcified plaque Profunda femoris artery: 200 cm/s, phasicity: Triphasic Superficial femoral artery (proximal): 144 cm/s, phasicity: Triphasic Superficial femoral artery (mid): 137 cm/s, phasicity: Triphasic Superficial femoral artery (distal): 73 cm/s, phasicity: Triphasic Popliteal artery: 132 cm/s, phasicity: Triphasic Posterior tibial artery: 91 cm/s, phasicity: Triphasic Peroneal artery: 63 cm/s, phasicity: Triphasic Anterior tibial artery: 73 cm/s, phasicity: Triphasic Dorsalis pedis artery: 87 cm/s, phasicity: Triphasic ANKLE-BRACHIAL INDEX: Right: 104? Left: 0.96 ANKLE PRESSURES: Right: PT 140, DP 130 Left: PT?152, DP?130 ANKLE PVR WAVEFORMS: Right: Normal Left: Normal US/US arterial duplex LE BI IMPRESSION: Right leg: Normal ankle brachial index and arterial duplex ultrasound evaluation. Status post right common femoral artery endarterectomy without recurrent plaque formation or stenosis Left leg: Normal ankle brachial index and arterial duplex ultrasound evaluation. Mild calcified plaque in the left common femoral artery without significant stenosis ITZ Reference: - >1.4 = calcified vessels - 0.9 - 1.4 = normal - no significant arterial disease - 0.7 - 0.89 = mild peripheral arterial disease - 0.51 - 0.69 = moderate peripheral arterial disease - ? 0.50 = severe peripheral arterial disease - < .30 = critical arterial disease
== END 2023-02-28 14:22 | disposition home or self-care (01) ==
LOC: HO.US 14:21
PROVIDERS: Visit Provider Surgery Vascular Surgery
DX: I70.213 Atherosclerosis of native arteries of extremities with intermittent claudication, bilateral legs (principal)
CPT/HCPCS: 93923; 93925

== ENCOUNTER 2023-03-28 09:46 | Outpatient (AMB) | payer MEDICAID, SELFPAY ==
--- NOTE | 2023-03-28 09:52 | A.OFFVIS_ITS ---
Intake Vital Signs 03/28/23 09:55 Height 5 ft 11 in Weight 198 lb BMI 27.6 Intake Visit Reasons: follow up Arterial US 02/28/2023 Intake Note: follow up ARterial US 02/28/23 w/ Hx of Right femoral endarterectomy 11/08/21. Pt wasn't due until September 2023, but pt had a fall off of a ladder and broke his hip, shortly after he started noticing severe cramping in bilateral LE and unable to move certain ways without getting a cramp. Can ambulate with out cramping, but if he bends at the knee he gets severe calf cramping Accompanied by: Self / Same As Patient Allergies No Known Allergies [No Known Allergies*] Allergy (Verified 03/28/23 09:59) HPI follow up Arterial US 02/28/2023 HPI Details Very pleasant 63-year-old gentleman presents for routine arterial surveillance follow-up. He had a prior femoral endarterectomy in appears to be doing quite well. He continues to be active around the house but has retired from [employer] which he used to do previously. In general extremely happy. [facility] Medical History Atherosclerosis of artery of extremity with intermittent claudication Hypercholesterolemia History of cocaine abuse History of alcohol abuse HTN (hypertension) Surgical History History of carpal tunnel surgery of right wrist Hx of arthroscopic knee surgery Social History Household Members: None Housing: Apartment Are you a primary rn intensive care unit to a significant other at home: No Do you presently have visiting nurse or other home services: No Alcohol intake: current Alcohol intake frequency: 3 or more drinks per day Patient Tobacco Use Status: Current someday Tobacco user Tobacco use type: Cigarette Cigarette Packs Per Day: 0.5 Cigarettes Per Day: 20.0 Years Smoked: 50 Second Hand Smoke Exposure: No Substance Use Type: Crack/Cocaine, Marijuana and Other Current occupational status: employed Review of Systems Const All systems reviewed & are unremarkable except as noted in HPI and below Reports no additional complaints ENT Reports Normal hearing present Card Denies chest pain, Denies chest pain at rest, Denies chest pain with activity an d Denies pedal edema Resp Denies cough GI Denies abdominal pain Musc Denies abnormal gait, Denies muscle cramps and Denies radiating pain into limb Skin/Breast Denies skin ulcer and Denies wounds Neuro Reports Normal hearing present and Denies abnormal gait Psych Reports no additional complaints Physical Exam Vital Signs: BMI result Body Mass Index 27.6 Const General: cooperative, healthy appearing and comfortable Orientation/consciousness: oriented to person, oriented to place and oriented to time HEENT Head: Yes normal to inspection Neck Neck: Yes normal visual inspection Carotids: no bruits Chest Chest palpation & inspection: normal inspection of the chest Resp Effort & Inspection: normal respiratory effort and able to speak in complete sentences Auscultation: clear to auscultation bilaterally, no crackles, no rales, no rhonchi and no wheezes Cardio Rate: regular rate Rhythm: regular rhythm Heart sounds: S1 normal heart sound present and S2 normal heart sound present Bruits: no carotid bruits Peripheral pulses: Peripheral pulses 2+ throughout GI Inspection: Yes normal to inspection Skin Wounds: no wounds Hair: normal Neuro General: oriented to person, oriented to place and oriented to time Cranial nerves: Yes CN's II-XII intact bilaterally and Yes Normal hearing present Cognition (Neuro): normal cognition Motor exam (neuro): 5/5 motor strength present throughout Extrem Other: venous exam: No significant superficial varicosities or spider telangiectasias, minimal edema General: No clubbing, No cyanosis and No edema Psych Appearance: grossly normal Mental Status: mental status grossly normal Speech and movement: Normal speech and movement present Results Reviewed Results Reviewed: Noninvasive arterial testing dated 02/28/2023 demonstrates ITZ on the right of 1.04 and on the left of 0.96. Assessment & Plan Assessment & Plan (1) PAD (peripheral artery disease): Comment: 11/08/2021 - right femoral endarterectomy Code(s): I73.9 - Peripheral vascular disease, unspecified Plan: In short patient has stable claudication. I did review the pathophysiology of peripheral vascular disease with the patient. In addition we did discuss routine conservative measures including a healthy diet and the importance of exercise and ambulation. We did discuss risk factor modification. The patient will continue to to follow-up with surveillance follow-up in approximately 1 year. Thank you for allowing us to participate in this patient's care. If there are any questions or concerns please do not hesitate to contact us. Orders: Orders US arterial duplex LE BI 364 Days I73.9 - Peripheral vascular disease, unspecified Coding Level of Care Code Est Pt Level 4 (07304) Diagnoses PAD (peripheral artery disease) I73.9
[2023-03-28 09:55] VITALS: BMI 27.6
== END 2023-03-28 10:14 | disposition home or self-care (01) ==
PROVIDERS: PCP Internal Medicine; Visit Provider Surgery Vascular Surgery
DX: I73.9 Peripheral vascular disease, unspecified (principal)
CPT/HCPCS: 99213

== ENCOUNTER → 2023-03-28 09:46 | Outpatient (BNVA) | payer MEDICAID, SELFPAY | PROVIDERS: PCP Internal Medicine; Visit Provider Surgery Vascular Surgery | DX: I73.9 Peripheral vascular disease, unspecified (principal); S72.009A Fracture of unspecified part of neck of unspecified femur, initial encounter for closed fracture; W11.XXXA Fall on and from ladder, initial encounter; Y93.9 Activity, unspecified; Y92.9 Unspecified place or not applicable; Y99.8 Other external cause status; R25.2 Cramp and spasm; F11.10 Opioid abuse, uncomplicated; F12.10 Cannabis abuse, uncomplicated; Z72.0 Tobacco use; Z98.890 Other specified postprocedural states | CPT/HCPCS: 99212 ==

== ENCOUNTER 2023-06-22 09:41 | Outpatient (REF) | payer MEDICAID, SELFPAY ==
[2023-06-22 11:15] LABS: Alanine Aminotransferase 33 U/L (0-40); Albumin Level 4.3 g/dL (3.5-5.0); Alkaline Phosphatase 91 U/L (39-117); Anion Gap 15 (12-20); Aspartate Amino Transferase 44 U/L (5-37); Bilirubin Total 0.5 mg/dL (0.0-1.0); Blood Urea Nitrogen 10 mg/dL (9-16); Calcium 9.5 mg/dL (8.4-10.2); Carbon Dioxide 28 mmol/L (22-29); Chloride 102 mmol/L (96-108); Cholesterol 175 mg/dL (<200); Estimated Glomerular Filt Rate > 60; Glucose Random 126 mg/dL (60-115); HDL Cholesterol 76 mg/dL (>40); LDL Cholesterol Calculated 88 mg/dL (<100); Sodium 141 mmol/L (135-145); Total Protein 7.7 g/dL (6.5-8.0); Triglycerides 57 mg/dL (<150)
[2023-06-22 11:31] LABS: Prostate Specific Antigen Scr 0.53 ng/mL (<0.05-4.0)
== END 2023-06-22 09:42 | disposition home or self-care (01) ==
LOC: HO.LAB 09:41
PROVIDERS: PCP Internal Medicine; Visit Provider Internal Medicine
DX: Z12.5 Encounter for screening for malignant neoplasm of prostate (principal); E78.00 Pure hypercholesterolemia, unspecified; F10.10 Alcohol abuse, uncomplicated; I10 Essential (primary) hypertension; N40.0 Benign prostatic hyperplasia without lower urinary tract symptoms; Z72.0 Tobacco use
CPT/HCPCS: 36415; 80053; 80061; 84153

== ENCOUNTER 2023-09-08 10:05 | Outpatient (AMB) | payer MEDICAID, SELFPAY ==
--- NOTE | 2023-09-08 10:19 | MHC.OFFVIS ---
Intake Intake Visit Reasons: LDCT SD Allergies No Known Allergies [No Known Allergies*] Allergy (Verified 03/28/23 09:59) HPI HPI Comments History of Present Illness Details Preston is a pleasant 63 year old male, current 1/2 ppd smoker with 37 PYH. Patient has been smoking since age 14 for 49 years at 1/2-1 ppd. Denies marijuana use. Reports possible exposure to chemicals or substances like asbestos. Denies second hand smoke exposure. Denies known family history of lung cancer. Denies personal history of cancers. Denies chest CT in last year. Denies recent travel outside the [place]. Denies testing positive for COVID. Admits receiving COVID Vaccine. Denies fever, chills, chest pain, new cough (yes on intake, however pt states resolution), hemoptysis or unintentional weight loss. Lung Cancer Screening Questionnaire reviewed with patient by provider. Shared Decision Making Completed. Discussed in detail with patient, the risk versus benefit of LDCT screening. Patient in agreement of proceeding with scan. [facility] Medical History Atherosclerosis of artery of extremity with intermittent claudication Hypercholesterolemia History of cocaine abuse History of alcohol abuse HTN (hypertension) Surgical History History of carpal tunnel surgery of right wrist Hx of arthroscopic knee surgery Social History (Updated 09/08/23 @ 11:15 by Jojo Michael NP) Household Members: None Housing: Apartment Are you a primary home visit field care manager to a significant other at home: No Do you presently have visiting nurse or other home services: No Alcohol intake: current Alcohol intake frequency: 3 or more drinks per day Patient Tobacco Use Status: Current someday Tobacco user Tobacco use type: Cigarette Cigarette Packs Per Day: 0.5 Second Hand Smoke Exposure: No Substance Use Type: Crack/Cocaine, Marijuana and Other Current occupational status: employed Assessment & Plan Assessment & Plan (1) Nicotine dependence, cigarettes, uncomplicated: Code(s): F17.210 - Nicotine dependence, cigarettes, uncomplicated Plan Shared decision-making visit completed today in office. This patient meets criteria for LDCT for lung cancer screening purposes and is asymptomatic. Offered smoking cessation. Patient has been scheduled for a low dose chest CT for screening purposes at [facility]. We discussed how the results will be obtained depending on CT findings. RADS 1 and RADS 2 will receive a letter with results and will follow up for annual LDCT. Patient informed they will be contacted at later date to schedule upcoming LDCT scan. RADS 3 and RADS 4 will receive a telephone call, or an office visit after reviewing case at our Lung Cancer Conference to determine when the next LDCT will be scheduled or further interventions that may be needed. Discussed importance of screening program and compliance with yearly LDCT scan as scheduled. Risks, benefits, and alternatives were discussed in detail and patient agrees to proceed. Risks discussed include but are not limited to: radiation exposure and possibility of additional intervention for benign disease. Benefits include detection of lung cancer at an early stage. A copy of today's visit and LDCT results will be sent to patient's PCP. Incidental findings on LDCT are PCP's responsibility. If there are incidental findings, our office will ensure that PCP office is aware of these findings. All questions were answered and patient is in agreement of plan. Coding Level of Care Code Lung Cancer Screening G0296 Diagnoses Nicotine dependence, cigarettes, uncomplicated F17.210
== END 2023-09-08 13:10 | disposition home or self-care (01) ==
PROVIDERS: PCP Internal Medicine; Referring Provider Internal Medicine; Visit Provider Nurse Practitioner Family
DX: F17.210 Nicotine dependence, cigarettes, uncomplicated (principal)
CPT/HCPCS: G0296

== ENCOUNTER 2023-09-08 10:32 | Outpatient (REF) | payer MEDICAID, SELFPAY ==
--- NOTE | ~2023-09-08 | CT_ITS ---
EXAMINATION: CT CHEST SCREENING CLINICAL INFORMATION: Nicotine dependence. COMPARISON: None available. NUMBER OF PACKS PER YEAR: 50. CURRENT SMOKER: Yes. TECHNIQUE: Multidetector volumetric CT imaging of the chest is performed without contrast using low dose technique. Additional 2D coronal and sagittal reformatted images and axial 3D maximum intensity projection (MIP) images are generated on the CT workstation. This CT examination was performed using dose optimization techniques as appropriate, variously including the following: *Automated exposure control *Adjustment of mA and/or kV according to patient size (this includes techniques or standardized protocols for targeted exams where dose is matched to indication/reason for exam; i.e. extremities or head) *Use of iterative reconstruction technique DLP: 52 mGy-cm FINDINGS: LUNGS: Mild emphysematous changes are seen. The lungs are clear with no evidence of inflammation or nodules. MEDIASTINUM: The mediastinum is normal. CORONARY ARTERY CALCIFICATION: Moderate. PLEURA: There is no pleural effusion. No pleural mass or thickening. AXILLA: No lymphadenopathy. UPPER ABDOMEN: Unremarkable. OSSEOUS STRUCTURES: Unremarkable. CT/CT lung screening IMPRESSION: Unremarkable examination. ASSESSMENT: Lung-RADS category 1: Negative. RECOMMENDATION: Routine annual low-dose CT screening in 12 months.
== END 2023-09-08 10:33 | disposition home or self-care (01) ==
LOC: HO.CT 10:32
PROVIDERS: PCP Internal Medicine; Visit Provider Nurse Practitioner Family
DX: F17.210 Nicotine dependence, cigarettes, uncomplicated (principal)
CPT/HCPCS: 71271; G0296

== ENCOUNTER 2024-02-23 16:45 | Emergency (ER) | payer MEDICAID, SELFPAY ==
--- OUTSIDE RECORDS SUMMARY | 2024-02-28 06:34 | XMS_ITS | Continuity of Care Document ---
Author Organization [facility] al Address [address] [place] [address]- Care Team Providers Care Senior Physician Name Role Phone Not on Staff, PCP Primary Care Physician Unavail able Encounter [facility] NBR [id number] Date(s): 06/10/22 - 06/10/[address] [address]- Discharge Disposition: A-D/C Home Attending Physician: Henri Diaz MD Admitting Physician: Henri Diaz MD Referring Physician: Not on Staff, Referring MD Allergies, Adverse Reactions, Alerts No Known Allergies Immunizations Given and Recorded Vaccine Date Status Refusal Reason tetanus/diphtheria/pertussis, acel(Tdap) 11/14/16 Given Medications Advil 200 mg oral tablet 2 tablet = 400 mg, By Mouth, Every 4 hours, PRN for fever, # 120 tablet, 0 Refills, Maintenance, 03/31/17 9:15:04, Tablet Start Date: 03/31/17 Status: Ordered ibuprofen 600 mg oral tablet 600 mg, 1, tablet, By Mouth, Every 6 hours, # 40 tablet, Refills 0, Tot. Refills 0, Maintenance, 09/17/15 11:53:10, Print Requisition Start Date: 09/17/15 Status: Ordered Naprosyn 500 mg oral tablet 1 tablet = 500 mg, By Mouth, 2 times a day, PRN Pain, # 20 tablet, 0 Refills, Maintenance, 179:39:44, Tablet Start Date: 03/31/17 Status: Ordered Social History Social History Type Response Smoking Status Current every day von james entered on: 11/14/16 Sex Patient Care team information Care Team Personnel Name: Not on Staff, PCP Position: [facility] Physician (General Medicine) Member Role: PCP
--- OUTSIDE RECORDS SUMMARY | 2024-02-28 06:34 | XMS_ITS | Continuity of Care Document ---
Author Organization [facility] al Address [address] [place] [address]- Care Team Providers Care Counselor Dormitory Name Role Phone Not on Staff, PCP Primary Care Physician Unavail able Encounter [facility] NBR [id number] Date(s): 05/29/22 - 05/29/[address] [address]- Discharge Disposition: A-D/C Home Attending Physician: Pito Valle MD Admitting Physician: Pito Valle MD Referring Physician: Not on Staff, Referring [...] 179:39:[id number], Tablet Start Date: 03/31/17 Status: Ordered Vital Signs Most recent to oldest [Reference Range]: 1 2 Height 180 cm (05/29/22 8:43 AM) 180 cm (05/29/22 8:40 AM) Weight 88 kg (05/29/22 8:43 AM) 88 kg (05/29/22 8:40 AM) Oxygen Saturation [94-100 %] 96 % (05/29/22 8:40 AM) Pulse Rate [55-90 bpm] 88 bpm (05/29/22 8:40 AM) Body Mass Index [18.5-24.99 kg/m2] 27.16 kg/m2 *H* (05/29/22 8:40 AM) Blood Pressure [90-138/55-84 mm Hg] 167/ 85mm Hg *H* (05/29/22 8:40 AM) Respiratory Rate [16-30 br/min] 18 br/mi n (05/29/22 8:40 AM) Temperature [96.8-100.4 DegF] 99.4 DegF (05/29/22 8:40 AM) Mode of Delivery (Oxygen) Room air (05/29/22 8:40 AM) Blood pressure sites Arm, left (05/29/22 8:40 AM) Temperature Route Temporal (05/29/22 8:40 AM) Dry Weight 88 kg (05/29/22 8:43 AM) 88 kg (05/29/22 8:40 AM) Weight Obtained Via Patient/family state d (05/29/22 8:40 AM) Dry Weight Obtained Via Patient/family s tated (05/29/22 8:40 AM) Social History Social History Type Response Smoking Status Current every day von james entered on: 11/14/16 Sex Note * Moriah Cervantes: PERFORM Event Display: Patient Education Leaflets Authored Date: [id number] Hand Laceration with Possible Nerve Injury, Stitches or Skin Glue ?? [id number] Hand Laceration with Possible Nerve Injury, Stitches or Skin Glue A laceration is a cut. It's possible for a laceration to the hand to injure a nerve. This type of injury can cause numbness, loss of feeling, and weakness in the hand, finger, or thumb. In some cases, a simple bruise or swelling around the nerve will cause numbness or tingling for a few days. After this, normal feeling and function return. If the feeling doesn???t return within 10 days, the nerve has likely been cut. In that case, a specialist will look at your injury. They will determine if a nerve repair would help. A nerve repair is a surgery that locates the ends of the nerve and sews them together. Your healthcare provider may close a deep cut with stitches or skin glue. They'll tell you if they're using stitches or skin glue. They may use skin glue if your cut has smooth edges, isn't gaping open, and isn't infected. Skin glue is less painful than stitches. In some cases, your provider may stitch a lower layer of skin before putting on the skin glue. The skin glue closes the cut in a few minutes. It also provides a water-resistant cover. You won't need a bandage. Skin glue peels off on its own in 5 to 10 days. Don't pick at it and peel it off sooner. Most skin wounds heal within 10 days. You may also need a tetanus shot. Your provider will give you this if you have no record of a shot,and the type of cut may lead to tetanus. Home care Your healthcare provider may prescribe an antibiotic cream or ointment. This is to help prevent infection. Follow all instructions for using this medicine. If you have pain, you can take pain medicine as advised by your provider. General care ??? Follow your healthcare provider???s directions on how to care for the cut ??? If your cut was over a joint or on the finger, you may be given a splint to keep the area still and prevent the wound from reopening after it was repaired. It's OK to remove the splint for a short time tocare for the cut. ??? Wash your hands with soap and clean, running water before and after caring for the cut. This is to help prevent infection. ??? Leave the original bandage in place for 24 hours. Replace it if it becomes wet or dirty. After 24 hours, change it once a day or as directed. ??? For stitches. Clean the wound daily. First, remove the bandage. Then wash the area gently with soap and clean, running water, or as advised by your healthcare provider. Use a wet cotton swab to loosen andremove any blood or crust that forms. Don???t clean the wound with peroxide. After cleaning, put a thin layer of antibiotic ointment on the cut if advised. Then put on a new bandage. ??? For skin glue. Don???t put liquid, ointment, or cream on the wound while the glue is in place. Don't do activities that cause heavy sweating. Protect the wound from sunlight. The glue should peel off in 5 to 10 days. If it hasn't fallen off after 10 days, you can take it off yourself. Put mineral oil or petroleum jelly on a cotton ball and gently rub the glue until it's removed. ??? Check your wound daily forsigns of infection. An infection can occur even with correct care. Signs of infection include redness, warmth, increased pain, and thick fluid leaking from the cut. ??? Don???t scratch, rub, or pick at the area. ??? Protect the wound from prolonged sunshine or tanning lamps. ??? Don't soak the cut in water. This can delay healing. Shower or take sponge baths instead of tub baths. Don???t go swimming. ??? If the area gets wet, gently pat it dry with a clean cloth. Replace the wet bandage with a dry one. ?? Follow-up care Follow up with your healthcare provider as advised. It's important for your healthcare provider to examine you again to find out if nerve function has recovered. If not, you may need a nerve repair. Your provider will take out the stitches within 7 to 14 days. If skin glue was used, it will fall off by itself in 5 to 10 days. ?? When to get medical advice Call your healthcare provider right away if any of the following occur: ??? Fever of 100.4??F (38??C) or higher, or as advised by your provider ??? Chills ??? Increasing pain in the wound ??? Redness, swelling, or pus coming from the wound ??? Stitches come apart or fall out before your next appointment ??? Surgical tape that falls off before 7 days, or wound edges that reopen ??? Bleeding that is not controlled by direct pressure ??? New weakness or dropping of a finger or thumb ?? Last Reviewed Date: 2021 ?? 3210-4939 [employer]. All rights reserved. This information is not intended as a substitute for professional medical care. Always follow your healthcare professional's instructions. ?? Patient Care team information Care Team Personnel Name: Not on Staff, PCP Position: [facility] Physician (General Medicine) Member Role: PCP Name: Buddy Burnette Position: [facility] ED OA Name: Moriah Cervantes Position: [facility] Associate Professional Member Role: ED Physician Info Print Press Operator Address: Address: [address] [place] [address] [place], [place] [address] Name: Patricia Williamson RN Position: [facility] ED RN W/OE and Tasks Member Role: Patient Care Provider Name: Tori FINK, Pito Dodson Position: [facility] Resident Member Role: Admitting Physician Address: Address: [address] [place] [address] [place] [address]-
== END 2024-02-23 17:48 | disposition left against medical advice (07) ==
PROVIDERS: Emergency Provider Emergency Medicine; PCP Internal Medicine
DX: R10.9 Unspecified abdominal pain (principal); Z53.21 Procedure and treatment not carried out due to patient leaving prior to being seen by health care provider